=== PATIENT | female | born 1960 | race Caucasian/White ===

== ENCOUNTER 2016-05-31 15:16 | Emergency (ER) | payer MEDICAID ==
[~2016-05-31] VITALS: Ht 162.6 cm; Wt 70.0 kg
[~2016-05-31 15:16] MED LIST: ANTI2TAB PO; ASPI81 PO; BENT20TA PO; CART180C4 PO; CYCL-36 PO; FURO20 PO; HYDR-3129 PO; OMEP20TA39 PO; POTA-267 PO; PROM1SUP12 PR; REST30CA PO; VALI10TA PO; ZOFR4TAB3 PO
--- NOTE | 2016-05-31 15:43 | PD ---
HPI Chief Complaint: Medical Clearance Time Seen by Provider: 15:19 Travel History International Travel<30 days: No Contact w/Intl Traveler<30days: No Traveled to known affect area: No History of Present Illness HPI The patient was seen and examined in the presence of the nurse. At no point in time was I in the room without the nurse present. This patient has chronic pain and takes Lortab 10 3 times a day scheduled. She has chronic abdominal pain and frequently gets pain in her upper torso. Duration one day. Severity is moderate. No alleviating factors. She has history of single vessel bypass 6 years ago. Today the pain is in her left mid back as well as her usual lower abdominal pain. No vomiting or diarrhea. No fever. No presyncopal symptoms PFSH Past Medical History Hx Anticoagulant Therapy: Yes Arthritis: Yes Asthma: No Autoimmune Disease: No Blood Disorders: No Anxiety: Yes Depression: No Heart Rhythm Problems: No Cancer: No Cardiac Catheterization: Yes Cardiomyopathy: Yes Cardiovascular Problems: Yes High Cholesterol: No Chemotherapy: No Chest Pain: Yes Congestive Heart Failure: Yes COPD: No Cerebrovascular Accident: No Coronary Artery Disease: Yes Diabetes: No Diminished Hearing: No Endocrine: No Gastrointestinal Disorders: Yes (REFLUX) GERD: Yes Glaucoma: No Genitourinary: No Headaches: Yes Hepatitis: No Hiatal Hernia: No Hypertension: Yes Immune Disorder: No Inguinal Hernia: Yes Implanted Vascular Access Dvce: Yes Kidney Stones: Yes Musculoskeletal: Yes Neurologic: No Psychiatric: Yes Reproductive: No Respiratory: Yes Immunizations Current: No Migraines: Yes Myocardial Infarction: Yes (2000) Pneumonia: Yes Radiation Therapy: No Seizures: No Sickle Cell Disease: No Sleep Apnea: Yes Thyroid Disease: No Ulcer: No PNEUMOCCOCAL Vaccine (Year): 2 ?: Not Menopausal: Yes : 4 Para: 2 Miscarriage: 0 : 2 Dilation and Curettage (D&C): No Past Surgical History Abdominal Surgery: Yes (4 HERNIA REPAIRS ABOVE UMBILICUS, 5 HERNIA REPAIRS R GROIN) AICD: No Appendectomy: Yes Arteriovenous Shunt: Yes Body Medical Devices: Permanent Retainers in Mouth Cardiac Surgery: Yes (SINGLE VESSEL BYPASS 2000) Coronary Artery Bypass Graft: Yes Coronary Stent: Yes (X1) Ear Surgery: No Endocrine Surgery: No Eye Surgery: No Genitourinary Surgery: Yes (DILATION DONE ON 10/20/12; URETHRAL STENT) Gynecologic Surgery: Yes (COMPLETE HYSTERECTOMY 1993) Hysterectomy: Yes Neurologic Surgery: No Oral Surgery: Yes (T/A) Pacemaker: No Thoracic Surgery: No Tonsillectomy: Yes (T/A) Other Surgery: Yes (STOMACH STAPLED) Social History Alcohol Use: No Tobacco Use: No Substance Use: No Allergies-Medications (Allergen,Severity, Reaction): Coded Allergies: Celebrex (Verified Allergy, Severe, NAUSEA, 05/31/16) Codeine (Verified Allergy, Severe, 05/31/16) Fentanyl (Verified Allergy, Severe, 05/31/16) throat closing Hydroxyzine (Verified Allergy, Severe, UNKNOWN, 05/31/16) Macrobid (Unverified Allergy, Severe, "DEALTHLY ILL", 05/31/16) Meloxicam (Verified Allergy, Severe, 05/31/16) Mobic (Verified Allergy, Severe, 05/31/16) Paxil (Verified Allergy, Severe, MUSCLE SPASMS, ITCHING, 05/31/16) SPASMS IN LEGS Peanut Allergy (Verified Allergy, Severe, 05/31/16) Tapazole (Verified Allergy, Severe, EMESIS, 05/31/16) Toradol (Verified Allergy, Severe, ITCHING ALL OVER, 05/31/16) Ultram (Verified Allergy, Severe, ITCHING, 05/31/16) Vioxx (Verified Allergy, Severe, "MADE ME SICK", 05/31/16) Zoloft (Verified Allergy, Severe, EMESIS, 05/31/16) Zyprexa (Verified Allergy, Severe, EMESIS, 05/31/16) Celecoxib (Unverified Allergy, Unknown, 05/31/16) Ketorolac (Unverified Allergy, Unknown, 05/31/16) Methimazole (Unverified Allergy, Unknown, 05/31/16) Olanzapine (Unverified Allergy, Unknown, 05/31/16) PEANUTS (Verified Allergy, Unknown, tight throat, 05/31/16) Paroxetine (Unverified Allergy, Unknown, 05/31/16) Rofecoxib (Verified Allergy, Unknown, tachycardia,nausea, 05/31/16) Sertraline (Verified Allergy, Unknown, nausea,tachycardia, 05/31/16) Reported Meds & Prescriptions Reported Meds & Active Scripts Active Reported Aspirin DR (Aspirin) 81 Mg Tabdr 81 Mg PO DAILY Flexeril (Cyclobenzaprine HCl) 10 Mg Tab 10 Mg PO TID [place]ia Xt (Diltiazem ER 24 HR) 180 Mg Caper 180 Mg PO DAILY Valium (Diazepam) 10 Mg Tab 10 Mg PO BID Bentyl (Dicyclomine HCl) 10 Mg Cap 10 Mg PO TIDACHS Furosemide 20 Mg Tab 20 Mg PO DAILY [place] (Hydrocodone-Acetaminophen) 10-325 Mg Tab 1 Tab PO TID PRN Loperamide (Loperamide HCl) 2 Mg Cap 2 Mg PO Q4HR PRN One capsule after each loose stool. Not to exceed 8 capsules per day. Nexium (Esomeprazole DR) 40 Mg Capdr 40 Mg PO DAILY K-Tab (Potassium Chloride) 10 Meq Tab 10 Meq PO DAILY Phenergan (Promethazine HCl) 25 Mg Tab 25 Mg PO Q4HR PRN Restoril (Temazepam) 30 Mg Cap 30 Mg PO HS Toprol XL (Metoprolol Succinate) 25 Mg Tab 25 Mg PO DAILY Trazodone (Trazodone HCl) 100 Mg Tab 100 Mg PO HS PRN Zofran Odt (Ondansetron Odt) 4 Mg Tab 4 Mg SL Q6HR PRN Review of Systems General / Constitutional: No: Fever Eyes: No: Visual changes HENT: No: Headaches Cardiovascular: Positive: Chest Pain or Discomfort Respiratory: No: Shortness of Breath Gastrointestinal: Positive: Abdominal Pain Genitourinary: No: Dysuria Musculoskeletal: No: Pain Skin: No Rash Neurologic: No: Weakness Psychiatric: Positive: Anxiety, No: Depression Endocrine: No: Polydipsia Hematologic/Lymphatic: No: Easy Bruising Physical Exam Narrative GENERAL: Well-nourished, well-developed patient who is highly anxious . Frequently hyperventilating SKIN: Warm and dry. HEAD: Atraumatic. Normocephalic. EYES: Pupils equal and round. No scleral icterus. No injection or drainage. ENT: No nasal bleeding or discharge. Mucous membranes pink and moist. NECK: Trachea midline. No JVD. CARDIOVASCULAR: Regular rate and rhythm. No murmur appreciated. RESPIRATORY: No accessory muscle use. Clear to auscultation. Breath sounds equal bilaterally. GASTROINTESTINAL: Abdomen soft, non-tender, nondistended. Hepatic and splenic margins not palpable. MUSCULOSKELETAL: No obvious deformities. No clubbing. No cyanosis. No edema. NEUROLOGICAL: Awake and alert. No obvious cranial nerve deficits. Motor grossly within normal limits. Normal speech. PSYCHIATRIC: Anxious mood and affect; insight and judgment seems weak. Data Data Last Documented VS Vital Signs Date Time Temp Pulse Resp B/P Pulse Ox O2 Delivery O2 Flow Rate FiO2 05/31/16 17:00 74 20 129/69 98 Room Air Orders Electrocardiogram (05/31/16 15:33) Basic Metabolic Panel (Bmp) (05/31/16 15:33) Ckmb (Isoenzyme) Profile (05/31/16 15:33) Complete Blood Count With Diff (05/31/16 15:33) Prothrombin Time / Inr (Pt) (05/31/16 15:33) Act Partial Throm Time (Ptt) (05/31/16 15:33) Troponin I (05/31/16 15:33) Chest, Single Ap (05/31/16 15:33) Ecg Monitoring (05/31/16 15:33) Iv Access Insert/Monitor (05/31/16 15:33) Oximetry (05/31/16 15:33) Sodium Chloride 0.9% Flush (Ns Flush) (05/31/16 15:45) Ondansetron Inj (Zofran Inj) (05/31/16 15:45) Labs Laboratory Tests Test 05/31/16 15:45 White Blood Count 5.6 TH/MM3 Red Blood Count 4.66 MIL/MM3 Hemoglobin 14.2 GM/DL Hematocrit 41.1 % Mean Corpuscular Volume 88.2 FL Mean Corpuscular Hemoglobin 30.5 PG Mean Corpuscular Hemoglobin 34.5 % Concent Red Cell Distribution Width 13.2 % Platelet Count 233 TH/MM3 Mean Platelet Volume 9.6 FL Neutrophils (%) (Auto) 71.9 % Lymphocytes (%) (Auto) 20.8 % Monocytes (%) (Auto) 6.0 % Eosinophils (%) (Auto) 1.0 % Basophils (%) (Auto) 0.3 % Neutrophils # (Auto) 4.0 TH/MM3 Lymphocytes # (Auto) 1.2 TH/MM3 Monocytes # (Auto) 0.3 TH/MM3 Eosinophils # (Auto) 0.1 TH/MM3 Basophils # (Auto) 0.0 TH/MM3 CBC Comment DIFF FINAL Differential Comment Prothrombin Time 10.7 SEC Prothromb Time International 1.0 RATIO Ratio Activated Partial 24.1 SEC Thromboplast Time Sodium Level 142 MEQ/L Potassium Level 3.7 MEQ/L Chloride Level 108 MEQ/L Carbon Dioxide Level 25.9 MEQ/L Anion Gap 8 MEQ/L Blood Urea Nitrogen 13 MG/DL Creatinine 1.21 MG/DL Estimat Glomerular Filtration 46 ML/MIN Rate Random Glucose 132 MG/DL Calcium Level 8.9 MG/DL Total Creatine Kinase 49 U/L Troponin I LESS THAN 0.02 NG/ML MDM Medical Decision Making Medical Screen Exam Complete: Yes Emergency Medical Condition: Yes Medical Record Reviewed: Yes Differential Diagnosis ACS, costochondritis, narcotic seeking behavior, anxiety Narrative Course I have reviewed the patient's electronic medical record. Reviewed her last visit here from September 2015. There are red flags for drug-seeking behavior IV placed I reviewed the EKG which shows sinus rhythm but no ST elevation or ectopy I reviewed the chest x-ray looks normal Extended cardiac monitoring shows sinus rhythm without ectopy CBC is normal Metabolic profile is normal CK is normal Troponin is normal Coagulation studies are normal I gave her IV Zofran throughout her stay I checked on her multiple times and each time she appeared to be resting currently or sleeping Workup here is negative. I don't have any clinical suspicion of ACS Stable for outpatient follow-up She frequently badgered me for narcotic medication but I don't feel that is indicated here. Diagnosis Primary Impression: Chest pain Qualified Code: R07.9 - Chest pain, unspecified type Additional Impressions: Chronic generalized abdominal pain Back pain Qualified Code: M54.6 - Acute left-sided thoracic back pain Additional Instructions: The patient was advised to follow up with their physician and return if they worsen. Med/Other Pt SpecificInfo: Other Disposition: 01 DISCHARGE HOME Condition: Stable Sixto Betts MD May 31, 2016 15:43
[2016-05-31] MEDS ORDERED: ONDANSETRON HCL 4 MG/2 ML VIAL IV ONE (15:45)
[2016-05-31] MEDS ORDERED: SODIUM CHLORIDE 0.9% FLUSH 5 ML FLUSH IVF PRN (15:45)
--- NOTE | 2016-05-31 15:50 | RADRPT ---
EXAM DATE/TIME: 05/31/2016 15:29 [facility] COMPARISON: CHEST SINGLE AP, April 27, 2014, 8:48. INDICATIONS : Posterior chest pain MEDICAL HISTORY : Cardiovascular disease. SURGICAL HISTORY : CABG. ENCOUNTER: Initial ACUITY: 2 weeks PAIN SCORE: 4/10 LOCATION: Left chest FINDINGS: A single view of the chest demonstrates the lungs to be symmetrically aerated without evidence of mas s, infiltrate or effusion. The cardiomediastinal contours are unremarkable. Osseous structures are intact. Evidence prior cardiac surgery and surgical clips at the GE junction CONCLUSION: No acute disease. No significant change has occurred. César Mitchell MD on May 31, 2016 at 15:47 Board Certified Radiologist. This report was verified electronically.
[2016-05-31 16:12] LABS: BASOPHIL % 0.3 % (0.0-2.0); EOSINOPHIL # 0.1 TH/MM3 (0-0.4); HEMATOCRIT 41.1 % (35.0-46.0); HEMO FLAGS DIFF FINAL; LYMPH % 20.8 % (9.0-44.0); LYMPHOCYTE # 1.2 TH/MM3 (1.0-4.8); MEAN CELL VOLUME 88.2 FL (80.0-100.0); MEAN CORPUSCULAR HEMOGLOBIN 30.5 PG (27.0-34.0); MEAN CORPUSCULAR HGB CONC 34.5 % (32.0-36.0); NEUT % 71.9 % (16.0-70.0); PLATELET COUNT 233 TH/MM3 (150-450); RED BLOOD COUNT 4.66 MIL/MM3 (4.00-5.30); RED CELL DISTRIBUTION WIDTH 13.2 % (11.6-17.2); WHITE BLOOD COUNT 5.6 TH/MM3 (4.0-11.0)
[2016-05-31 16:26] LABS: APTT (PATIENT) 24.1 SEC (24.3-30.1); PROTHROMBIN TIME - PATIENT 10.7 SEC (9.8-11.6)
[2016-05-31] MEDS ORDERED: TRAZ100T4 PO (16:26)
[2016-05-31] MEDS ORDERED: ZOFR4TAB3 SL (16:26)
[2016-05-31] MEDS ORDERED: PROM25TA5 PO (16:30)
[2016-05-31] MEDS ORDERED: REST30CA PO (16:30)
[2016-05-31] MEDS ORDERED: LOPE2CAP PO (16:30)
[2016-05-31] MEDS ORDERED: TOPR25TA PO (16:30)
[2016-05-31] MEDS ORDERED: HYDR-3366 PO (16:30)
[2016-05-31] MEDS ORDERED: K-TA10TA PO (16:30)
[2016-05-31] MEDS ORDERED: NEXI40CA PO (16:30)
[2016-05-31] MEDS ORDERED: FURO20TA PO (16:30)
[2016-05-31] MEDS ORDERED: DICY10 PO (16:31)
[2016-05-31] MEDS ORDERED: DIAZ10 PO (16:33)
[2016-05-31] MEDS ORDERED: CYCL1TAB29 PO (16:33)
[2016-05-31] MEDS ORDERED: ASPI81TA5 PO (16:33)
[2016-05-31] MEDS ORDERED: CART180C PO (16:33)
[2016-05-31 16:47] LABS: ANION GAP 8 MEQ/L (5-15); BICARBONATE 25.9 MEQ/L (21.0-32.0); BLOOD UREA NITROGEN 13 MG/DL (7-18); CHLORIDE 108 MEQ/L (98-107); GLOMERULAR FILTRATION RATE 46 ML/MIN (>89); POTASSIUM 3.7 MEQ/L (3.5-5.1); SODIUM (NA) 142 MEQ/L (136-145)
[2016-05-31 16:49] LABS: CREATINE KINASE 49 U/L (26-192)
[2016-05-31 17:00] VITALS: BP 129/69; PULSE 74; RESP 20; O2SAT 98
--- NOTE | 2016-06-02 07:05 | EKG ---
Date Performed: 05/31/2016 Time Performed: 15:35:48 PTAGE: 56 years EKG: Sinus rhythm Consider anteroseptal ischemia PREVIOUS TRACING : 04/28/2014 02.14 DOCTOR: Amado Nava Interpretating Date/Time 06/02/2016 07:03:41
== END 2016-05-31 18:43 | disposition home or self-care (01) ==
LOC: NEPE 15:16
DX: R07.9 Chest pain, unspecified (principal); R10.84 Generalized abdominal pain; G89.29 Other chronic pain; M54.6 Pain in thoracic spine; I10 Essential (primary) hypertension; G47.30 Sleep apnea, unspecified; Z79.01 Long term (current) use of anticoagulants; Z87.39 Personal history of other diseases of the musculoskeletal system and connective tissue; Z86.59 Personal history of other mental and behavioral disorders; Z86.79 Personal history of other diseases of the circulatory system; Z87.19 Personal history of other diseases of the digestive system; Z87.442 Personal history of urinary calculi; Z87.09 Personal history of other diseases of the respiratory system; Z86.69 Personal history of other diseases of the nervous system and sense organs
CPT/HCPCS: 71010; 80048; 82550; 84484; 85025; 85610; 85730; 93005; 96374; 99284; J2405

== ENCOUNTER 2017-01-22 16:49 | Observation (INO) | payer MEDICAID ==
[~2017-01-22] VITALS: Ht 162.6 cm; Wt 68.0 kg
[~2017-01-22 16:49] MED LIST changes: -ANTI2TAB PO; -ASPI81 PO; +ASPI81TA5 PO; -BENT20TA PO; +CART180C PO; -CART180C4 PO; -CYCL-36 PO; +CYCL1TAB29 PO; +DIAZ10 PO; +DICY10 PO; -FURO20 PO; +FURO20TA PO; -HYDR-3129 PO; +HYDR-3366 PO; +K-TA10TA PO; +LOPE2CAP PO; +NEXI40CA PO; -OMEP20TA39 PO; -POTA-267 PO; -PROM1SUP12 PR; +PROM25TA5 PO; +TOPR25TA PO; +TRAZ100T4 PO; -VALI10TA PO; -ZOFR4TAB3 PO; +ZOFR4TAB3 SL
[2017-01-22 16:50] VITALS: BP 123/65; PULSE 58; RESP 16; TEMP 98; O2SAT 96
[2017-01-22] MEDS ORDERED: SODIUM CHLOR 0.9% 1000 ML INJ 1,000 ML IV SCH ×2 (17:11→17:45)
[2017-01-22] MEDS ORDERED: SODIUM CHLORIDE 0.9% FLUSH 10 ML FLUSH IV FLUSH PRN ×2 (17:15→23:00)
--- NOTE | 2017-01-22 17:32 | PD ---
HPI Chief Complaint: Abnormal Results Time Seen by Provider: 17:11 Travel History International Travel<30 days: No Contact w/Intl Traveler<30days: No Traveled to known affect area: No History of Present Illness HPI This is a 56-year-old female with history of heart disease, reported gallbladder disease, who presents today with complaints of right upper quadrant pain with associated nausea and decreased appetite. The patient reports that she was seen 1 month ago at [facility] in [place]. She states that that time they told her she had gallbladder disease and needed to have her gallbladder taken out emergently. She reports that the surgeons came in and said that they were going to take her gallbladder out and then shortly afterwards, she was told that she was being discharged. She is unsure why she was being discharged. She states that the ladder from her insurance company stated that there was no mention of gallbladder cancer or gallbladder polyp or gallbladder calcifications. She is here because she reports her insurance, [employer] called her and told her that she should come here rather than going back to [facility]. She denies any chills but does state that she had a low-grade temperature of 1015 days ago. There is no urinary symptoms. She states that she feels abdominal bloating. There are no other complaints time my examination. PFSH Past Medical History Hx Anticoagulant Therapy: Yes Arthritis: Yes Asthma: No Autoimmune Disease: No Blood Disorders: No Anxiety: Yes Depression: No Heart Rhythm Problems: No Cancer: No Cardiac Catheterization: Yes Cardiomyopathy: Yes Cardiovascular Problems: Yes High Cholesterol: No Chemotherapy: No Chest Pain: Yes Congestive Heart Failure: Yes COPD: No Cerebrovascular Accident: No Coronary Artery Disease: Yes Diabetes: No Diminished Hearing: No Endocrine: No Gastrointestinal Disorders: Yes (REFLUX) GERD: Yes Glaucoma: No Genitourinary: No Headaches: Yes Hepatitis: No Hiatal Hernia: No Hypertension: Yes Immune Disorder: No Inguinal Hernia: Yes Implanted Vascular Access Dvce: Yes Kidney Stones: Yes Musculoskeletal: Yes Neurologic: No Psychiatric: Yes Reproductive: No Respiratory: Yes Immunizations Current: No Migraines: Yes Myocardial Infarction: Yes (2000) Pneumonia: Yes Radiation Therapy: No Seizures: No Sickle Cell Disease: No Sleep Apnea: Yes Thyroid Disease: No Ulcer: No PNEUMOCCOCAL Vaccine (Year): 2 ?: Not Menopausal: Yes : 4 Para: 2 Miscarriage: 0 : 2 Dilation and Curettage (D&C): No Past Surgical History Abdominal Surgery: Yes (4 HERNIA REPAIRS ABOVE UMBILICUS, 5 HERNIA REPAIRS R GROIN) AICD: No Appendectomy: Yes Arteriovenous Shunt: Yes Body Medical Devices: Permanent Retainers in Mouth Cardiac Surgery: Yes (SINGLE VESSEL BYPASS 2000) Coronary Artery Bypass Graft: Yes Coronary Stent: Yes (X1) Ear Surgery: No Endocrine Surgery: No Eye Surgery: No Genitourinary Surgery: Yes (DILATION DONE ON 10/20/12; URETHRAL STENT) Gynecologic Surgery: Yes (COMPLETE HYSTERECTOMY 1993) Hysterectomy: Yes Neurologic Surgery: No Oral Surgery: Yes (T/A) Pacemaker: No Thoracic Surgery: No Tonsillectomy: Yes (T/A) Other Surgery: Yes (STOMACH STAPLED) Social History Alcohol Use: No Tobacco Use: No Substance Use: No Allergies-Medications (Allergen,Severity, Reaction): Coded Allergies: codeine (Unverified Allergy, Severe, 11/23/16) fentanyl (Unverified Allergy, Severe, 11/23/16) throat closing hydroxyzine (Unverified Allergy, Severe, UNKNOWN, 11/23/16) ipratropium (Unverified Allergy, Severe, 11/23/16) ketorolac (Unverified Allergy, Severe, ITCHING ALL OVER, 11/23/16) meloxicam (Unverified Allergy, Severe, 11/23/16) methimazole (Unverified Allergy, Severe, EMESIS, 11/23/16) nitrofurantoin (Unverified Allergy, Severe, "DEALTHLY ILL", 11/23/16) olanzapine (Unverified Allergy, Severe, EMESIS, 11/23/16) paroxetine (Unverified Allergy, Severe, MUSCLE SPASMS, ITCHING, 11/23/16) SPASMS IN LEGS sertraline (Unverified Allergy, Severe, EMESIS, 11/23/16) tramadol (Unverified Allergy, Severe, ITCHING, 11/23/16) celecoxib (Unverified Allergy, Unknown, 11/23/16) peanut (Unverified Allergy, Unknown, tight throat, 11/23/16) rofecoxib (Unverified Allergy, Unknown, tachycardia,nausea, 11/23/16) Reported Meds & Prescriptions Reported Meds & Active Scripts Active Reported Cardizem CD 24 HR (Diltiazem CD 24 HR) 180 Mg Caper 180 Mg PO DAILY Lyrica (Pregabalin) 75 Mg Cap 75 Mg PO BID Miralax Powder (Polyethylene Glycol 3350 Powder) 17 Gm Powd 17 Gm PO DAILY PRN Mix and dissolve one measuring cap-ful (17 grams) in water or juice. Phenergan (Promethazine HCl) 25 Mg Tablet 25 Mg PO TID Pantoprazole (Pantoprazole Sodium) 40 Mg Tab 40 Mg PO DAILY Carafate (Sucralfate) 1 Gram Tab 1 Gm PO QID On empty stomach One Daily (Multiple Vitamin) 1 Tab 1 Tab PO DAILY Proair Hfa 8.5 GM Inh (Albuterol Sulfate) 90 Mcg/Act Aer 2 Puff INH Q4-6H PRN 108 mcg/actuation Tizanidine (Tizanidine HCl) 2 Mg Cap 2 Mg PO TID Dicyclomine (Dicyclomine HCl) 20 Mg Tab 20 Mg PO QID Aspirin DR (Aspirin) 81 Mg Tabdr 81 Mg PO DAILY Valium (Diazepam) 10 Mg Tab 10 Mg PO BID Furosemide 20 Mg Tab 20 Mg PO DAILY [place] (Hydrocodone-Acetaminophen) 10-325 Mg Tab 1 Tab PO TID PRN K-Tab (Potassium Chloride) 10 Meq Tab 10 Meq PO DAILY Restoril (Temazepam) 30 Mg Cap 30 Mg PO HS Toprol XL (Metoprolol Succinate) 25 Mg Tab 25 Mg PO DAILY Zofran Odt (Ondansetron Odt) 4 Mg Tab 4 Mg SL Q6HR PRN Review of Systems Except as stated in HPI: all other systems reviewed are Neg General / Constitutional: Positive: Fever (5 days ago 101.), No: Chills HENT: No: Headaches, Neck Pain Cardiovascular: No: Chest Pain or Discomfort, Irregular Rhythm Respiratory: No: Cough, Shortness of Breath Gastrointestinal: Positive: Nausea, Abdominal Pain (right upper quadrant), Constipation, No: Vomiting Genitourinary: No: Frequency, Dysuria Musculoskeletal: No: Weakness, Pain Neurologic: No: Weakness, Dizziness, Headache Physical Exam Narrative GENERAL: Well-developed well-nourished female in no acute respiratory distress. SKIN: Focused skin assessment warm/dry. HEAD: Atraumatic. Normocephalic. EYES: No scleral icterus. No injection or drainage. ENT: No nasal bleeding or discharge. Mucous membranes pink and moist. NECK: Trachea midline. Pulse. CARDIOVASCULAR: Regular rate and rhythm. No murmur appreciated. RESPIRATORY: No accessory muscle use. Clear to auscultation. Breath sounds equal bilaterally. GASTROINTESTINAL: Abdomen soft, distended. No rebound or guarding. She has subjective tenderness in her right upper quadrant with Tanner's sign. MUSCULOSKELETAL: No obvious deformities. No clubbing. No cyanosis. No edema. NEUROLOGICAL: Awake and alert. No obvious cranial nerve deficits. Motor grossly within normal limits. Normal speech. PSYCHIATRIC: Appropriate mood and affect; insight and judgment normal. Data Data Last Documented VS Vital Signs Date Time Temp Pulse Resp B/P (MAP) Pulse Ox O2 Delivery O2 Flow Rate FiO2 01/22/17 17:40 Room Air 01/22/17 16:50 98.0 58 16 123/65 (84) 96 Orders Orders Complete Blood Count With Diff (01/22/17 17:11) Comprehensive Metabolic Panel (01/22/17 17:11) Lipase (01/22/17 17:11) Urinalysis - C+S If Indicated (01/22/17 17:11) Iv Access Insert/Monitor (01/22/17 17:11) Ecg Monitoring (01/22/17 17:11) Oximetry (01/22/17 17:11) Sodium Chlor 0.9% 1000 Ml Inj (Ns 1000 M (01/22/17 17:11) Sodium Chloride 0.9% Flush (Ns Flush) (01/22/17 17:15) Ed Urine Pregnancytest Poc (01/22/17 17:11) Us Abdomen Gallbladder (01/22/17 17:24) Morphine Inj (Morphine Inj) (01/22/17 17:45) Oral Contrast - Adult (01/22/17 18:22) Ct Abd/Pel W/O Iv Contrast (01/22/17 18:31) Ondansetron Inj (Zofran Inj) (01/22/17 18:45) Diatrizoate Liq ( Gastroview Liq) (01/22/17 18:37) Labs Laboratory Tests Test 01/22/17 17:45 White Blood Count 4.8 TH/MM3 Red Blood Count 4.38 MIL/MM3 Hemoglobin 13.3 GM/DL Hematocrit 39.2 % Mean Corpuscular Volume 89.5 FL Mean Corpuscular Hemoglobin 30.4 PG Mean Corpuscular Hemoglobin Concent 34.0 % Red Cell Distribution Width 13.6 % Platelet Count 219 TH/MM3 Mean Platelet Volume 9.3 FL Neutrophils (%) (Auto) 65.8 % Lymphocytes (%) (Auto) 25.3 % Monocytes (%) (Auto) 7.0 % Eosinophils (%) (Auto) 1.6 % Basophils (%) (Auto) 0.3 % Neutrophils # (Auto) 3.1 TH/MM3 Lymphocytes # (Auto) 1.2 TH/MM3 Monocytes # (Auto) 0.3 TH/MM3 Eosinophils # (Auto) 0.1 TH/MM3 Basophils # (Auto) 0.0 TH/MM3 CBC Comment DIFF FINAL Differential Comment Blood Urea Nitrogen 24 MG/DL Creatinine 1.78 MG/DL Random Glucose 94 MG/DL Total Protein 6.5 GM/DL Albumin 3.6 GM/DL Calcium Level 8.5 MG/DL Alkaline Phosphatase 58 U/L Aspartate Amino Transf (AST/SGOT) 15 U/L Alanine Aminotransferase (ALT/SGPT) 28 U/L Total Bilirubin 0.2 MG/DL Sodium Level 142 MEQ/L Potassium Level 4.4 MEQ/L Chloride Level 107 MEQ/L Carbon Dioxide Level 28.0 MEQ/L Anion Gap 7 MEQ/L Estimat Glomerular Filtration Rate 29 ML/MIN Lipase 157 U/L MDM Medical Decision Making Medical Screen Exam Complete: Yes Emergency Medical Condition: Yes Differential Diagnosis Acute cholecystitis versus bowel obstruction versus constipation versus liver disease Narrative Course 56-year-old female presents with right upper quadrant pain. Patient also reports abdominal distention. She states she was seen a month ago at [facility] and at that time they told her she had acute cholecystitis. She states that they were preparing her to have surgery and then came in and said that she is being discharged. We're trying to obtain the records from [facility]. She is ultrasound was performed and shows no evidence of acute cholecystitis. A CT scan of the and pelvis with oral contrast only is ordered to rule out acute abdominal pathology. The patient will be signed out to Dr. Mick Badillo. She will do fairly need to be admitted. Her creatinine has increased from 1.2-1.7. This is likely secondary to her not being able to eat or drink well. Diagnosis Primary Impression: Abdominal pain Additional Impressions: Abdominal swelling [id number] kidney injury Coronary artery disease Andre Venegas MD Jan 22, 2017 17:32
[2017-01-22] MEDS ORDERED: PROCHLORPERAZINE INJ 10 MG/2 ML VIAL IV PUSH ONE (17:45)
[2017-01-22] MEDS ORDERED: MORPHINE SULFATE 4 MG/ML INJ IV PUSH ONE ×2 (17:45→21:00)
[2017-01-22] MEDS ORDERED: DICY20TA10 PO (17:57)
[2017-01-22] MEDS ORDERED: TIZA2CAP3 PO (17:57)
[2017-01-22 17:58] LABS: AUTOMATED NEUTROPHIL # 3.1 TH/MM3 (1.8-7.7); BASOPHIL % 0.3 % (0.0-2.0); EOSINOPHIL # 0.1 TH/MM3 (0-0.4); EOSINOPHIL % 1.6 % (0.0-4.0); HEMATOCRIT 39.2 % (35.0-46.0); HEMO FLAGS DIFF FINAL; LYMPH % 25.3 % (9.0-44.0); LYMPHOCYTE # 1.2 TH/MM3 (1.0-4.8); MEAN CELL VOLUME 89.5 FL (80.0-100.0); MEAN CORPUSCULAR HEMOGLOBIN 30.4 PG (27.0-34.0); NEUT % 65.8 % (16.0-70.0); PLATELET COUNT 219 TH/MM3 (150-450); RED BLOOD COUNT 4.38 MIL/MM3 (4.00-5.30); RED CELL DISTRIBUTION WIDTH 13.6 % (11.6-17.2); WHITE BLOOD COUNT 4.8 TH/MM3 (4.0-11.0)
[2017-01-22] MEDS ORDERED: MIRA3350 PO (18:01)
[2017-01-22] MEDS ORDERED: CARD180C5 PO (18:01)
[2017-01-22] MEDS ORDERED: ALBUAER3 INH (18:01)
[2017-01-22] MEDS ORDERED: MULT-207 PO (18:01)
[2017-01-22] MEDS ORDERED: PANT40TA3 PO (18:01)
[2017-01-22] MEDS ORDERED: PROM25TA10 PO (18:01)
[2017-01-22] MEDS ORDERED: CARA1TAB6 PO (18:01)
[2017-01-22] MEDS ORDERED: LYRI75CA PO (18:01)
[2017-01-22 18:17] LABS: ANION GAP 7 MEQ/L (5-15); AST (GOT) 15 U/L (15-37); BLOOD UREA NITROGEN 24 MG/DL (7-18); CHLORIDE 107 MEQ/L (98-107); GLOMERULAR FILTRATION RATE 29 ML/MIN (>89); POTASSIUM 4.4 MEQ/L (3.5-5.1); SODIUM (NA) 142 MEQ/L (136-145)
--- NOTE | 2017-01-22 18:19 | RADRPT ---
EXAM DATE/TIME: 01/22/2017 17:47 [facility] COMPARISON: No previous studies available for comparison. INDICATIONS : Right upper quadrant pain. MEDICAL HISTORY : Myocardial infarction. Hypertension. Gastroesophageal reflux disease. Glasses. Dizziness. Headache. N umbness. Congestive heart failure. Coronary artery disease. Cardiomyopathy. Sleep apnea. Anticoagulan t therapy. Kidney stones. Inguinal hernia. Arthritis. SURGICAL HISTORY : Tonsillectomy. CABG. Appendectomy. Adenoidectomy. Single vessel bypass. Arteriovenous shunt. Hysterec mary jo. ENCOUNTER: Initial ACUITY: 4-6 months PAIN SCORE: 10/10 LOCATION: Right upper quadrant MEASUREMENTS: LIVER: 15.8 cm length COMMON DUCT: 8 mm RIGHT KIDNEY: 9.4 x 3.9 x 4.0 cm FINDINGS: LIVER: Normal echotexture without focal lesion or ductal dilatation. COMMON DUCT: Mildly dilated without evidence of focal intraluminal filling defect. GALLBLADDER: Contains no stones, demonstrates no wall thickening or pericholecystic fluid. PANCREAS: The visualized portions are within normal limits. RIGHT KIDNEY: Small hyperechoic structures suggesting nephrolithiasis. There is no evidence of hydronephrosis. Prom inent extrarenal pelvis is noted. CONCLUSION: 1. Mildly distended common bile duct. 2. No evidence of intrahepatic biliary duct dilatation, cholelithiasis or acute inflammatory changes. 3. Small bright echoes in the kidney suggesting nephrolithiasis. 4. Right extrarenal pelvis without significant hydronephrosis. Obey Canales MD on January 22, 2017 at 18:16 Board Certified Radiologist. This report was verified electronically.
[2017-01-22 18:23] LABS: ALKALINE PHOSPHATASE 58 U/L (45-117); ALT (GPT) 28 U/L (10-53); TOTAL BILIRUBIN ADULT 0.2 MG/DL (0.2-1.0)
[2017-01-22] MEDS ORDERED: DIATRIZOATE MEGLUM/DIATRIZOATE SOD 9 ML CUP ONE (18:37)
[2017-01-22] MEDS ORDERED: ONDANSETRON HCL 4 MG/2 ML VIAL IV PUSH ONE ×2 (18:45→21:00)
[2017-01-22 19:11] LABS: BLOOD, URINE NEG (NEG); GLUCOSE,URINE NEG (NEG); KETONE, URINE NEG (NEG); NITRITE,URINE NEG (NEG); PH, URINE 6.5 (5.0-8.5); SQUAMOUS EPITHELIAL CELL URINE <1 /hpf (0-5); URINE COLOR LIGHT-YELLOW (YELLW/STRAW)
[2017-01-22 19:14] LABS: COMMENT (UR) CULT NOT INDICATED; CULTURE IF INDICATED CULT NOT INDICATED
[2017-01-22 19:42] VITALS: PULSE 55; RESP 20; O2SAT 96
--- NOTE | 2017-01-22 20:16 | PD ---
Physical Exam Narrative Patient was seen by ED physician and signed out to me. Data Data Last Documented VS Vital Signs Date Time Temp Pulse Resp B/P (MAP) Pulse Ox O2 Delivery O2 Flow Rate FiO2 01/22/17 21:08 65 110/74 (86) 99 Room Air 01/22/17 19:42 20 01/22/17 16:50 98.0 Orders Orders Complete Blood Count With Diff (01/22/17 17:11) Comprehensive Metabolic Panel (01/22/17 17:11) Lipase (01/22/17 17:11) Urinalysis - C+S If Indicated (01/22/17 17:11) Iv Access Insert/Monitor (01/22/17 17:11) Ecg Monitoring (01/22/17 17:11) Oximetry (01/22/17 17:11) Sodium Chlor 0.9% 1000 Ml Inj (Ns 1000 M (01/22/17 17:11) Sodium Chloride 0.9% Flush (Ns Flush) (01/22/17 17:15) Ed Urine Pregnancytest Poc (01/22/17 17:11) Us Abdomen Gallbladder (01/22/17 17:24) Morphine Inj (Morphine Inj) (01/22/17 17:45) Oral Contrast - Adult (01/22/17 18:22) Ct Abd/Pel W/O Iv Contrast (01/22/17 18:31) Ondansetron Inj (Zofran Inj) (01/22/17 18:45) Diatrizoate Liq ( Gastroview Liq) (01/22/17 18:37) Morphine Inj (Morphine Inj) (01/22/17 21:00) Ondansetron Inj (Zofran Inj) (01/22/17 21:00) Labs Laboratory Tests Test 01/22/17 17:45 01/22/17 18:50 White Blood Count 4.8 TH/MM3 Red Blood Count 4.38 MIL/MM3 Hemoglobin 13.3 GM/DL Hematocrit 39.2 % Mean Corpuscular Volume 89.5 FL Mean Corpuscular Hemoglobin 30.4 PG Mean Corpuscular Hemoglobin Concent 34.0 % Red Cell Distribution Width 13.6 % Platelet Count 219 TH/MM3 Mean Platelet Volume 9.3 FL Neutrophils (%) (Auto) 65.8 % Lymphocytes (%) (Auto) 25.3 % Monocytes (%) (Auto) 7.0 % Eosinophils (%) (Auto) 1.6 % Basophils (%) (Auto) 0.3 % Neutrophils # (Auto) 3.1 TH/MM3 Lymphocytes # (Auto) 1.2 TH/MM3 Monocytes # (Auto) 0.3 TH/MM3 Eosinophils # (Auto) 0.1 TH/MM3 Basophils # (Auto) 0.0 TH/MM3 CBC Comment DIFF FINAL Differential Comment Blood Urea Nitrogen 24 MG/DL Creatinine 1.78 MG/DL Random Glucose 94 MG/DL Total Protein 6.5 GM/DL Albumin 3.6 GM/DL Calcium Level 8.5 MG/DL Alkaline Phosphatase 58 U/L Aspartate Amino Transf (AST/SGOT) 15 U/L Alanine Aminotransferase (ALT/SGPT) 28 U/L Total Bilirubin 0.2 MG/DL Sodium Level 142 MEQ/L Potassium Level 4.4 MEQ/L Chloride Level 107 MEQ/L Carbon Dioxide Level 28.0 MEQ/L Anion Gap 7 MEQ/L Estimat Glomerular Filtration Rate 29 ML/MIN Lipase 157 U/L Urine Color LIGHT-YELLOW Urine Turbidity CLEAR Urine pH 6.5 Urine Specific [place] 1.009 Urine Protein NEG mg/dL Urine Glucose (UA) NEG mg/dL Urine Ketones NEG mg/dL Urine Occult Blood NEG Urine Nitrite NEG Urine Bilirubin NEG Urine Urobilinogen LESS THAN 2.0 MG/DL Urine Leukocyte Esterase NEG Urine RBC 1 /hpf Urine Squamous Epithelial Cells <1 /hpf Microscopic Urinalysis Comment CULT NOT INDICATED MDM Supervised Visit with RACH: No Interpretation(s) 2014 p.m. Gallbladder ultrasound shows mildly distended common bile duct, right nephrolithiasis. CBC within normal limit. CMP within normal limit. BUN 24. Creatinine 1.78. GFR 29. UA is negative. 22:12 PM. distended urinary bladder, possible urinary retention. Diagnosis Primary Impression: Abdominal pain Qualified Codes: R10.11 - Right upper quadrant pain Additional Impressions: Coronary artery disease Qualified Codes: I25.10 - Atherosclerotic heart disease of [place] coronary artery without angina pectoris [id number] kidney injury Qualified Codes: N17.9 - Acute kidney failure, unspecified; N18.4 - Chronic kidney disease, stage 4 (severe) Abdominal swelling Admitting Information Admitting Physician Requests: Admit Mick Badillo MD Jan 22, 2017 20:16
[2017-01-22 21:08] VITALS: BP 110/74; PULSE 65; O2SAT 99
--- NOTE | 2017-01-22 21:56 | RADRPT ---
EXAM DATE/TIME: 01/22/2017 21:13 [place] COMPARISON: No previous studies available for comparison. INDICATIONS : Right upper abdomen pain. ORAL CONTRAST: Prescribed oral contrast ingested. RADIATION DOSE: 8.48 CTDIvol (mGy) MEDICAL HISTORY : Cardiovascular disease. Congestive heart failure. SURGICAL HISTORY : Appendectomy. Hysterectomy.Gastric bypass. ENCOUNTER: Initial ACUITY: 1 day PAIN SCALE: 5/10 LOCATION: Right upper quadrant TECHNIQUE: Volumetric scanning of the abdomen and pelvis was performed. Using automated exposure control and ad justment of the mA and/or kV according to patient size, radiation dose was kept as low as reasonably achievable to obtain optimal diagnostic quality images. DICOM format image data is available electro nically for review and comparison. FINDINGS: LOWER LUNGS: The visualized lower lungs are clear. LIVER: Homogeneous density without lesion. There is no dilation of the biliary tree. No calcified gallston es. SPLEEN: Normal size without lesion. PANCREAS: Within normal limits. KIDNEYS: Normal in size and shape. There is no mass, stone, or hydronephrosis. ADRENAL GLANDS: Within normal limits. VASCULAR: There is no aortic aneurysm. BOWEL/MESENTERY: Postsurgical changes are noted at the gastroesophageal junction. The stomach, small bowel, and colon demonstrate no acute abnormality. There is no free intraperitoneal air or fluid. ABDOMINAL WALL: Within normal limits. RETROPERITONEUM: There is no lymphadenopathy. BLADDER: Urinary bladder is markedly distended. There is no evidence of wall thickening or intraluminal fillin g defects REPRODUCTIVE: Within normal limits. INGUINAL: There is no lymphadenopathy or hernia. MUSCULOSKELETAL: Within normal limits for patient age. CONCLUSION: 1. Markedly distended urinary bladder characteristic of urinary retention. 2. Post surgical changes gastroesophageal junction. 3. No other significant findings. Obey Canales MD on January 22, 2017 at 21:50 Board Certified Radiologist. This report was verified electronically.
[2017-01-22] MEDS ORDERED: SENNOSIDES 8.6 MG TAB PO PRN (23:00)
[2017-01-22] MEDS ORDERED: MAGNESIUM HYDROXIDE SUSP 30 ML CUP PO PRN (23:00)
[2017-01-22] MEDS ORDERED: LACTULOSE SYRUP 20 GM/30 ML CUP PO PRN (23:00)
[2017-01-22] MEDS ORDERED: ACETAMINOPHEN 325 MG TAB PO PRN (23:00)
[2017-01-22] MEDS ORDERED: BISACODYL 10 MG SUPP RECTAL PRN (23:00)
[2017-01-22] MEDS ORDERED: MORPHINE SULFATE 4 MG/ML INJ IV PUSH PRN (23:00)
--- NOTE | 2017-01-22 23:03 | HHI.HP ---
[facility] Santhosh Yuan DO Admission Diagnosis intractable abdominal pain Diagnoses: (1) Intractable abdominal pain Diagnosis: Principal (2) Dilated cbd, acquired Diagnosis: Principal (3) Renal insufficiency Diagnosis: Principal (4) Anxiety Diagnosis: Principal Travel History International Travel<30 Days: No Contact w/Intl Traveler <30 Da: No Traveled to Known Affected Are: No History of Present Illness This is a 56-year-old female with a PMH of Anxiety, HTN, Hyperlipidemia, GERD and CAD who presented to the ER with complaints of severe RUQ pain w/ associated nausea and vomiting. States symptoms have been ongoing for 4 months , previously seen at [facility] w/ negative CT and RUQ US per her report, states she was seen by GI s/p EGD/Colonoscopy w/ normal findings and was referred to [facility] for outpatient cholecystectomy, however states surgeon's office keeps rescheduling her appointments and her insurance company [employer] told her to come here "to take my gallbladder out". Denies fever, chills or diarrhea. On arrival, BP 123/65, HR 58, O2 sat 96% on RA, Afebrile. CBC normal. Chemistry unremarkable except for creatinine 1.78, previously 1.21 on 05/31/16. UA negative. CT Abd/Pelvis w/ markedly distended urinary bladder no other findings. Gallbladder US w/ mildly distended common bile duct, no evidence of intrahepatic biliary duct dilatation, cholelithiasis or acute inflammatory changes. Patient was to be discharged home, however is having persistent pain despite several doses of IV Morphine. Review of Systems Except as stated in HPI: all other systems reviewed are Neg ROS: 14 point review of systems otherwise negative. Past Family Social History Past Medical History PMH: Anxiety, HTN, Hyperlipidemia, GERD and CAD Past Surgical History PAST SURGICAL HISTORY: Hernia Repair, Appendectomy, CABG, Cardiac Stent, Hysterectomy, Stomach [place], Tonsillectomy Allergies: Coded Allergies: codeine (Unverified Allergy, Severe, 11/23/16) fentanyl (Unverified Allergy, Severe, 11/23/16) throat closing hydroxyzine (Unverified Allergy, Severe, UNKNOWN, 11/23/16) ipratropium (Unverified Allergy, Severe, 11/23/16) ketorolac (Unverified Allergy, Severe, ITCHING ALL OVER, 11/23/16) meloxicam (Unverified Allergy, Severe, 11/23/16) methimazole (Unverified Allergy, Severe, EMESIS, 11/23/16) nitrofurantoin (Unverified Allergy, Severe, "DEALTHLY ILL", 11/23/16) olanzapine (Unverified Allergy, Severe, EMESIS, 11/23/16) paroxetine (Unverified Allergy, Severe, MUSCLE SPASMS, ITCHING, 11/23/16) SPASMS IN LEGS sertraline (Unverified Allergy, Severe, EMESIS, 11/23/16) tramadol (Unverified Allergy, Severe, ITCHING, 11/23/16) celecoxib (Unverified Allergy, Unknown, 11/23/16) peanut (Unverified Allergy, Unknown, tight throat, 11/23/16) rofecoxib (Unverified Allergy, Unknown, tachycardia,nausea, 11/23/16) Family History PAST FAMILY HISTORY: Reviewed. No h/o DM or CAD Social History PAST SOCIAL HISTORY: Negative for alcohol, tobacco or drugs. Physical Exam Vital Signs Vital Signs Date Time Temp Pulse Resp B/P (MAP) Pulse Ox O2 Delivery O2 Flow Rate FiO2 01/22/17 21:08 65 110/74 (86) 99 Room Air 01/22/17 19:44 98 Room Air 01/22/17 19:42 55 20 96 Room Air 01/22/17 17:40 Room Air 01/22/17 16:50 98.0 58 16 123/65 (84) 96 Physical Exam PE: GENERAL: Middle-aged white female in significant distress secondary to anxiety, very tearful. HEENT: PERRLA, EOMI. No scleral icterus or conjunctival pallor. No lid lag or facial droop. CARDIOVASCULAR: Regular rate and rhythm. No obvious murmurs to auscultation. No chest tenderness to palpation. RESPIRATORY: No obvious rhonchi or wheezing. Clear to auscultation. Breath sounds equal bilaterally. GASTROINTESTINAL: Abdomen soft, RUQ tenderness to palpation, nondistended. BS normal. MUSCULOSKELETAL: Extremities without clubbing, cyanosis, or edema. No obvious deformities. NEUROLOGICAL: Awake, alert and oriented x4. No focal neurologic deficits. Moving both upper and lower extremities spontaneously. Laboratory Laboratory Tests Test 01/22/17 17:45 01/22/17 18:50 White Blood Count 4.8 Red Blood Count 4.38 Hemoglobin 13.3 Hematocrit 39.2 Mean Corpuscular Volume 89.5 Mean Corpuscular Hemoglobin 30.4 Mean Corpuscular Hemoglobin Concent 34.0 Red Cell Distribution Width 13.6 Platelet Count 219 Mean Platelet Volume 9.3 Neutrophils (%) (Auto) 65.8 Lymphocytes (%) (Auto) 25.3 Monocytes (%) (Auto) 7.0 Eosinophils (%) (Auto) 1.6 Basophils (%) (Auto) 0.3 Neutrophils # (Auto) 3.1 Lymphocytes # (Auto) 1.2 Monocytes # (Auto) 0.3 Eosinophils # (Auto) 0.1 Basophils # (Auto) 0.0 CBC Comment DIFF FINAL Differential Comment Blood Urea Nitrogen 24 Creatinine 1.78 Random Glucose 94 Total Protein 6.5 Albumin 3.6 Calcium Level 8.5 Alkaline Phosphatase 58 Aspartate Amino Transf (AST/SGOT) 15 Alanine Aminotransferase (ALT/SGPT) 28 Total Bilirubin 0.2 Sodium Level 142 Potassium Level 4.4 Chloride Level 107 Carbon Dioxide Level 28.0 Anion Gap 7 Estimat Glomerular Filtration Rate 29 Lipase 157 Urine Color LIGHT-YELLOW Urine Turbidity CLEAR Urine pH 6.5 Urine Specific [place] 1.009 Urine Protein NEG Urine Glucose (UA) NEG Urine Ketones NEG Urine Occult Blood NEG Urine Nitrite NEG Urine Bilirubin NEG Urine Urobilinogen LESS THAN 2.0 Urine Leukocyte Esterase NEG Urine RBC 1 Urine Squamous Epithelial Cells <1 Microscopic Urinalysis Comment CULT NOT INDICATED Result Diagram: 01/22/17174401/22/171744 Caprini VTE Risk Assessment Caprini VTE Risk Assessment: No/Low Risk (score <= 1) Caprini Risk Assessment Model Point Value = 1 Point Value = 2 Point Value = 3 Point Value = 5 Age 41-60 Minor surgery BMI > 25 kg/m2 Swollen legs Varicose veins or History of unexplained or recurrent spontaneous Oral contraceptives or hormone replacement Sepsis (< 1 month) Serious lung disease, including pneumonia (< 1 month) Abnormal pulmonary function Acute myocardial infarction Congestive heart failure (< 1 month) History of inflammatory bowel disease Medical patient at bed rest Age 61-74 Arthroscopic surgery Major open surgery (> 45 min) Laparoscopic surgery (> 45 min) Malignancy Confined to bed (> 72 hours) Immobilizing plaster cast Central venous access Age >= 75 History of VTE Family history of VTE Factor V Leiden Prothrombin [id number] Lupus anticoagulant Anticardiolipin antibodies Elevated serum homocysteine Heparin-induced thrombocytopenia Other congenital or acquired thrombophilia Stroke (< 1 month) Elective arthroplasty Hip, pelvis, or leg fracture Acute spinal cord injury (< 1 month) Prophylaxis Regimen Total Risk Factor Score Risk Level Prophylaxis Regimen 0-1 Low Early ambulation 2 Moderate Order ONE of the following: *Sequential Compression Device (SCD) *Heparin 5000 units SQ BID 3-4 Higher Order ONE of the following medications: *Heparin 5000 units SQ TID *Enoxaparin/Lovenox 40 mg SQ daily (WT < 150 kg, CrCl > 30 mL/min) *Enoxaparin/Lovenox 30 mg SQ daily (WT < 150 kg, CrCl > 10-29 mL/min) *Enoxaparin/Lovenox 30 mg SQ BID (WT < 150 kg, CrCl > 30 mL/min) AND/OR *Sequential Compression Device (SCD) 5 or more Highest Order ONE of the following medications: *Heparin 5000 units SQ TID (Preferred with Epidurals) *Enoxaparin/Lovenox 40 mg SQ daily (WT < 150 kg, CrCl > 30 mL/min) *Enoxaparin/Lovenox 30 mg SQ daily (WT < 150 kg, CrCl > 10-29 mL/min) *Enoxaparin/Lovenox 30 mg SQ BID (WT < 150 kg, CrCl > 30 mL/min) AND *Sequential Compression Device (SCD) Assessment and Plan Problem List: (1) Intractable abdominal pain ICD Code: R10.9 - Unspecified abdominal pain (2) Dilated cbd, acquired ICD Code: K83.8 - Other specified diseases of biliary tract (3) Renal insufficiency ICD Code: N28.9 - Disorder of kidney and ureter, unspecified (4) Anxiety ICD Code: F41.9 - Anxiety Status: Acute Assessment and Plan A/P: 1. Intractable Abd Pain: c/o RUQ pain x4 months, worse after eating, associated nausea/vomiting. S/p multiple doses of Morphine IV in ER w/ minimal relief. Continue analgesics/antiemetics as needed. CT Abd/Pelvis w/ urinary retention, no other acute findings, images reviewed by me. 2. CBD Dilatation: Gallbladder US w/ mild CBD dilatation, no intrahepatic biliary ductal dilatation, no cholelithiasis, no inflammation/infection noted, images reviewed by me. Previous eval at [facility] w/ negative work up, s/p EGD/ Colonoscopy, referred to [facility] as outpatient, however pt demanding "someone take out my gallbladder". No indication for emergent intervention. Will consult GI for further eval, likely [facility] as outpatient for elective cholecystectomy. Continue w/ analgesics as above. 3. Renal Insufficiency: Acute on Chronic. Creatinine 1.78, previously 1.21 on 05/31/16. IVF for hydration, repeat labs in a.m. 4. Anxiety: extremely anxious/tearful on exam, resume home medications, Ativan prn if needed. 5. DVT Prophylaxis: SCD/Teds. 6. Social work for d/c planning as needed. 7. Case discussed w/ ER physician at length. Reny Wong MD Jan 22, 2017 23:03
[2017-01-22] MEDS: SODIUM CHLOR 0.9% 1000 ML INJ 1,000 ML IV SCH (23:14)
[2017-01-22] MEDS ORDERED: ALBUTEROL SULFATE 90 MCG/ACT HFA 8 GM INHALER INH PRN (23:45)
[2017-01-22] MEDS ORDERED: LORazepam 2 MG/ML VIAL IV PUSH PRN (23:45)
[2017-01-22] MEDS: TEMAZEPAM 15 MG CAP PO SCH (23:54)
[2017-01-23 00:15] VITALS: BP 117/69; PULSE 78; RESP 18; TEMP 98.8; O2SAT 98
[2017-01-23] MEDS: ONDANSETRON HCL 4 MG/2 ML VIAL IVP PRN (01:40)
[2017-01-23 04:23] VITALS: BP 103/55; PULSE 57; RESP 18; TEMP 98.1; O2SAT 97
[2017-01-23 08:21] VITALS: BP 113/58; PULSE 58; RESP 20; TEMP 96; O2SAT 60; O2SAT 96
[2017-01-23 08:30] LABS: AUTOMATED NEUTROPHIL # 1.5 TH/MM3 (1.8-7.7); BASOPHIL % 0.3 % (0.0-2.0); EOSINOPHIL # 0.1 TH/MM3 (0-0.4); EOSINOPHIL % 3.4 % (0.0-4.0); HEMATOCRIT 36.9 % (35.0-46.0); HEMO FLAGS DIFF FINAL; LYMPH % 46.9 % (9.0-44.0); LYMPHOCYTE # 1.7 TH/MM3 (1.0-4.8); MEAN CELL VOLUME 89.3 FL (80.0-100.0); MEAN CORPUSCULAR HEMOGLOBIN 30.4 PG (27.0-34.0); MONO % 8.4 % (0.0-8.0); PLATELET COUNT 177 TH/MM3 (150-450); RED BLOOD COUNT 4.13 MIL/MM3 (4.00-5.30); RED CELL DISTRIBUTION WIDTH 13.5 % (11.6-17.2); WHITE BLOOD COUNT 3.6 TH/MM3 (4.0-11.0)
--- NOTE | 2017-01-23 08:33 | HHI.PR ---
Subjective Remarks Follow-up for abdominal pain. The patient is extremely anxious. She is fixated on getting her gallbladder out. She is absolutely sure that this is what is causing her right upper quadrant pain and cannot be dissuaded otherwise. Apparently she's been having constant right upper quadrant pain for 4 months. She states this was first evaluated about a month ago at [facility] in [facility]. She was evaluated by GI, Dr. Moran, and had a reportedly unremarkable EGD and colonoscopy. She also reports she had a HIDA scan at that time. She states that she was told by multiple doctors there that she needed to have her gallbladder out, but she also states that she had multiple negative tests. She states that her mother and her sisters have had negative tests for their gallbladders but they still had them removed. She states she was evaluated by surgery there, Dr. Cantu, who she did see in the hospital and in the outpatient setting. She states that he told her he would take out her gallbladder, but she states there was problems with her insurance and it has not been scheduled yet. She states she called her insurance and they told her to come to the hospital at [place]. She has been taking [place] at home which does not relieve the pain, states morphine helps. She reports a normal BM today. She states she never has any vomiting, just gagging. She's been tolerating oral intake. She states she felt feverish last night. She reports she's been urinating normally. Objective Vitals Vital Signs Date Time Temp Pulse Resp B/P (MAP) Pulse Ox O2 Delivery O2 Flow Rate FiO2 01/23/17 04:23 98.1 57 18 103/55 (71) 97 01/23/17 00:15 98.8 78 18 117/69 (85) 98 01/22/17 21:08 65 110/74 (86) 99 Room Air 01/22/17 19:44 98 Room Air 01/22/17 19:42 55 20 96 Room Air 01/22/17 17:40 Room Air 01/22/17 16:50 98.0 58 16 123/65 (84) 96 Result Diagram: 01/22/17 8325 01/22/171744 Objective Remarks GENERAL: Well-developed well-nourished. In no acute distress. SKIN: Warm and dry. No lesions noted. HEENT: Normocephalic. Pupils equal and round. Mucous membranes pink and moist. CARDIOVASCULAR: Regular rate and rhythm. No murmur appreciated. RESPIRATORY: No accessory muscle use. Clear to auscultation. Breath sounds equal bilaterally. GASTROINTESTINAL: Abdomen soft, nondistended. Some mild RUQ TTP. Bowel sounds x4. MUSCULOSKELETAL: No obvious deformities. No clubbing or cyanosis. No edema. NEUROLOGICAL: Awake and alert. No focal neurological deficits. Moves upper and lower extremities spontaneously. Normal speech. PSYCHIATRIC: Appropriate mood and affect; insight and judgment normal. A/P Problem List: (1) Intractable abdominal pain ICD Code: R10.9 - Unspecified abdominal pain Status: Acute (2) Dilated cbd, acquired ICD Code: K83.8 - Other specified diseases of biliary tract Status: Acute (3) Renal insufficiency ICD Code: N28.9 - Disorder of kidney and ureter, unspecified Status: Acute (4) Anxiety ICD Code: F41.9 - Anxiety Status: Acute Assessment and Plan 56-year-old female with a PMH of Anxiety, HTN, Hyperlipidemia, GERD and CAD who presented to the ER with complaints of severe RUQ pain w/ associated nausea and vomiting Intractable Abd Pain: c/o constant RUQ pain x4 months, worse after eating. Abdominal CT with possible urinary retention's, otherwise no acute findings. No improvement on home [place], continue Percocet prn and IV morphine as needed for breakthrough. CBD Dilatation: Gallbladder US w/ mild common bile duct distention; no intrahepatic biliary ductal dilatation, no cholelithiasis, no inflammation noted. LFTs and lipase within normal limits. Afebrile with no leukocytosis. Previous workup at [facility], obtain records. No indication for emergent intervention. Check HIDA scan. GI consulted. Addendum 1100: Discussed with GI, recommended general surgery evaluate Acute kidney injury on chronic kidney disease: Creatinine 1.78, previously 1.21 on 05/31/16. IVF. Repeat labs pending. Anxiety: Chronic. Seems to be contributing to above symptoms. Continue home Valium. DVT Prophylaxis: SCD/Teds. Discharge Planning Obtain records. Follow-up specialist input. Monitor for clinical improvement. Darien Dorado Jan 23, 2017 08:33
[2017-01-23] MEDS: ASPIRIN EC 81 MG TABEC PO SCH (08:47)
[2017-01-23] MEDS: DIAZEPAM 10 MG TAB PO SCH ×2 (08:47→20:34)
[2017-01-23] MEDS: PANTOPRAZOLE SOD 40 MG DELAYED RELEASE TAB PO SCH (08:48)
[2017-01-23] MEDS: SODIUM CHLORIDE 0.9% FLUSH 10 ML FLUSH IV FLUSH SCH ×2 (08:48→20:34)
[2017-01-23] MEDS: MULTIVITAMIN TAB PO SCH (08:48)
[2017-01-23] MEDS: METOPROLOL SUCCINATE 25 MG EXTENDED RELEASE TAB PO SCH (08:48)
[2017-01-23] MEDS: DOCUSATE SODIUM 50 MG/SENNA 8.6 MG TAB PO SCH ×2 (08:48→20:34)
[2017-01-23 08:49] LABS: ANION GAP 10 MEQ/L (5-15); AST (GOT) 10 U/L (15-37); BICARBONATE 28.3 MEQ/L (21.0-32.0); BLOOD UREA NITROGEN 20 MG/DL (7-18); CHLORIDE 106 MEQ/L (98-107); GLOMERULAR FILTRATION RATE 52 ML/MIN (>89); SODIUM (NA) 144 MEQ/L (136-145)
[2017-01-23] MEDS: DICYCLOMINE HCL 20 MG TAB PO SCH ×4 (08:49→20:34)
[2017-01-23] MEDS: PREGABALIN 75 MG CAP PO SCH ×2 (08:49→20:34)
[2017-01-23 08:53] LABS: ALKALINE PHOSPHATASE 46 U/L (45-117); ALT (GPT) 19 U/L (10-53); TOTAL BILIRUBIN ADULT 0.3 MG/DL (0.2-1.0)
[2017-01-23] MEDS: DILTIAZEM-CD 180 MG CAP ER PO SCH (08:55)
[2017-01-23] MEDS: SUCRALFATE 1 GM TAB PO SCH ×3 (08:55→17:21)
[2017-01-23] MEDS: SODIUM CHLOR 0.9% 1000 ML INJ 1,000 ML IV SCH ×2 (08:55→18:54)
--- NOTE | 2017-01-23 11:44 | PD.CONS ---
HPI History of Present Illness This is a 56 year old female who presented to the emergency room for evaluation of severe right upper quadrant pain with associated nausea/vomiting. She states that she has been having these symptoms for the past 4 months. It is a pressure -like pain in right upper quadrant that radiates to her back with associated nausea and occasional vomiting. Her symptoms are aggravated by po intake. She states this is any food, regardless of the type of food. She also has associated bloated. She does have constipation, but states that she had 2 bowel movements this morning and not having any issues with this at this time. She states that she has not been able to eat because of the pain and has lost 36 lbs over the past 7-8 weeks. She also reports intermittent chills and fevers at night. She reports that she has been in and out of [facility] for these symptoms. She reports that she has had CT scans, HIDA scan, US , and EGD/Colonoscopy. She was seen by [facility] for GI. She reports that she was told that she had hemorrhoids, but that her scopes were otherwise unremarkable. She has been seen by Dr. Allen, but reports that she has not been able to get an appointment because they have been rescheduled. She called her insurance [employer] on Tuesday and reports that they told her to come here to have her gallbladder removed. GB US (01/22/17)----> Mildly distended common bile duct, no evidence of intrahepatic biliary duct dilatation, cholelithiasis or acute inflammatory changes, small bright echoes in the kidney suggesting nephrolithiasis, right extrarenal pelvis without significant hydronephrosis. CT scan abdomen and pelvis (01/22/17)----> Markedly distended urinary bladder characteristic of urinary retention. Post surgical changes in gastroesophageal junction. No other significant findings. CBC and LFT are unremarkable. A HIDA Scan has been ordered and is pending. General surgery has been consulted. (Analisa Hill) PFSH Past Medical History Anxiety HTN Hyperlipidemia GERD CAD Hemorrhoids Abdominal pain with n/v x 4 months Past Surgical History 9 Hernia Repairs- right groin, umbilical Appendectomy CABG Cardiac catheterization with stent placement Hysterectomy Stomach [place] Tonsillectomy EGD/Colonoscopy (Analisa Hill) Coded Allergies: codeine (Unverified Allergy, Severe, 11/23/16) fentanyl (Unverified Allergy, Severe, 11/23/16) throat closing hydroxyzine (Unverified Allergy, Severe, UNKNOWN, 11/23/16) ipratropium (Unverified Allergy, Severe, 11/23/16) ketorolac (Unverified Allergy, Severe, ITCHING ALL OVER, 11/23/16) meloxicam (Unverified Allergy, Severe, 11/23/16) methimazole (Unverified Allergy, Severe, EMESIS, 11/23/16) nitrofurantoin (Unverified Allergy, Severe, "DEALTHLY ILL", 11/23/16) olanzapine (Unverified Allergy, Severe, EMESIS, 11/23/16) paroxetine (Unverified Allergy, Severe, MUSCLE SPASMS, ITCHING, 11/23/16) SPASMS IN LEGS sertraline (Unverified Allergy, Severe, EMESIS, 11/23/16) tramadol (Unverified Allergy, Severe, ITCHING, 11/23/16) celecoxib (Unverified Allergy, Unknown, 11/23/16) peanut (Unverified Allergy, Unknown, tight throat, 11/23/16) rofecoxib (Unverified Allergy, Unknown, tachycardia,nausea, 11/23/16) Medications Allergies Coded Allergies Type Severity Reaction Last Updated Verified codeine Allergy Severe 11/23/16 No fentanyl Allergy Severe 11/23/16 No hydroxyzine Allergy Severe UNKNOWN 11/23/16 No ipratropium Allergy Severe 11/23/16 No ketorolac Allergy Severe ITCHING ALL OVER 11/23/16 No meloxicam Allergy Severe 11/23/16 No methimazole Allergy Severe EMESIS 11/23/16 No nitrofurantoin Allergy Severe "DEALTHLY ILL" 11/23/16 No olanzapine Allergy Severe EMESIS 11/23/16 No paroxetine Allergy Severe MUSCLE SPASMS, ITCHING 11/23/16 No sertraline Allergy Severe EMESIS 11/23/16 No tramadol Allergy Severe ITCHING 11/23/16 No celecoxib Allergy Unknown 11/23/16 No peanut Allergy Unknown tight throat 11/23/16 No rofecoxib Allergy Unknown tachycardia,nausea 11/23/16 No Active Scripts Medications Dose Route/Sig Max Daily Dose Days Date Category Dose Instructions Cardizem CD 24 HR (Diltiazem CD 24 HR) 180 Mg Caper 180 Mg PO DAILY 01/22/17 Reported Lyrica (Pregabalin) 75 Mg Cap 75 Mg PO BID 01/22/17 Reported Miralax Powder (Polyethylene Glycol 3350 Powder) 17 Gm Powd 17 Gm PO DAILY PRN 01/22/17 Reported Mix and dissolve one measuring cap-ful (17 grams) in water or juice. Phenergan (Promethazine HCl) 25 Mg Tablet 25 Mg PO TID 01/22/17 Reported Pantoprazole (Pantoprazole Sodium) 40 Mg Tab 40 Mg PO DAILY 01/22/17 Reported Carafate (Sucralfate) 1 Gram Tab 1 Gm PO QID 01/22/17 Reported On empty stomach One Daily (Multiple Vitamin) 1 Tab 1 Tab PO DAILY 01/22/17 Reported Proair Hfa 8.5 GM Inh (Albuterol Sulfate) 90 Mcg/Act Aer 2 Puff INH Q4-6H PRN 01/22/17 Reported 108 mcg/actuation Tizanidine (Tizanidine HCl) 2 Mg Cap 2 Mg PO TID 01/22/17 Reported Dicyclomine (Dicyclomine HCl) 20 Mg Tab 20 Mg PO QID 01/22/[address] (Aspirin) 81 Mg Tabdr 81 Mg PO DAILY 05/31/16 Reported Valium (Diazepam) 10 Mg Tab 10 Mg PO BID 05/31/16 Reported Furosemide 20 Mg Tab 20 Mg PO DAILY 05/31/16 Reported [place] (Hydrocodone-Acetaminophen) 10-325 Mg Tab 1 Tab PO TID PRN 05/31/16 Reported K-Tab (Potassium Chloride) 10 Meq Tab 10 Meq PO DAILY 05/31/16 Reported Restoril (Temazepam) 30 Mg Cap 30 Mg PO HS 05/31/16 Reported Toprol XL (Metoprolol Succinate) 25 Mg Tab 25 Mg PO DAILY 05/31/16 Reported Zofran Odt (Ondansetron Odt) 4 Mg Tab 4 Mg SL Q6HR PRN 05/31/16 Reported Family History Mother had cardiac disease Social History Denies tobacco, etoh, illicit drug use (Analisa Hill) Review of Systems Constitutional: COMPLAINS OF: Fever, Weight loss (50 ), Chills, Change in appetite Respiratory: DENIES: Cough Cardiovascular: DENIES: Chest pain Gastrointestinal: COMPLAINS OF: Abdominal pain, Constipation, Nausea, Swelling of Abdomen Integumentary: DENIES: Abnormal pigmentation Hematologic/lymphatic: DENIES: Bruising Neurologic: DENIES: Headache Psychiatric: DENIES: Confusion (Analisa Hill) GI Exam Vitals I&O Vital Signs Date Time Temp Pulse Resp B/P (MAP) Pulse Ox O2 Delivery O2 Flow Rate FiO2 01/23/17 08:21 96.0 58 20 113/58 (76) 96 01/23/17 04:23 98.1 57 18 103/55 (71) 97 01/23/17 00:15 98.8 78 18 117/69 (85) 98 01/22/17 21:08 65 110/74 (86) 99 Room Air 01/22/17 19:44 98 Room Air 01/22/17 19:42 55 20 96 Room Air 01/22/17 17:40 Room Air 01/22/17 16:50 98.0 58 16 123/65 (84) 96 I/O 01/22/17 01/22/17 01/22/17 01/23/17 01/23/17 01/23/17 07:00 15:00 23:00 07:00 15:00 23:00 Intake Total 200 ml Balance 200 ml Intake Oral 200 ml Imaging Last Impressions Abdomen/Pelvis CT 01/22/17 1831 Signed Impressions: Service Date/Time: Sunday, January 22, 2017 21:13 - CONCLUSION: 1. Markedly distended urinary bladder characteristic of urinary retention. 2. Post surgical changes gastroesophageal junction. 3. No other significant findings. Obey Canales MD Gall Bladder Ultrasound 01/22/17 9277 Signed Impressions: Service Date/Time: Sunday, January 22, 2017 17:47 - CONCLUSION: 1. Mildly distended common bile duct. 2. No evidence of intrahepatic biliary duct dilatation, cholelithiasis or acute inflammatory changes. 3. Small bright echoes in the kidney suggesting nephrolithiasis. 4. Right extrarenal pelvis without significant hydronephrosis. Obey Canales MD Laboratory Test 01/22/17 17:45 01/22/17 18:50 01/23/17 07:12 White Blood Count 4.8 TH/MM3 3.6 TH/MM3 Red Blood Count 4.38 MIL/MM3 4.13 MIL/MM3 Hemoglobin 13.3 GM/DL 12.5 GM/DL Hematocrit 39.2 % 36.9 % Mean Corpuscular Volume 89.5 FL 89.3 FL Mean Corpuscular Hemoglobin 30.4 PG 30.4 PG Mean Corpuscular Hemoglobin Concent 34.0 % 34.0 % Red Cell Distribution Width 13.6 % 13.5 % Platelet Count 219 TH/MM3 177 TH/MM3 Mean Platelet Volume 9.3 FL 9.8 FL Neutrophils (%) (Auto) 65.8 % 41.0 % Lymphocytes (%) (Auto) 25.3 % 46.9 % Monocytes (%) (Auto) 7.0 % 8.4 % Eosinophils (%) (Auto) 1.6 % 3.4 % Basophils (%) (Auto) 0.3 % 0.3 % Neutrophils # (Auto) 3.1 TH/MM3 1.5 TH/MM3 Lymphocytes # (Auto) 1.2 TH/MM3 1.7 TH/MM3 Monocytes # (Auto) 0.3 TH/MM3 0.3 TH/MM3 Eosinophils # (Auto) 0.1 TH/MM3 0.1 TH/MM3 Basophils # (Auto) 0.0 TH/MM3 0.0 TH/MM3 CBC Comment DIFF FINAL DIFF FINAL Differential Comment Blood Urea Nitrogen 24 MG/DL 20 MG/DL Creatinine 1.78 MG/DL 1.09 MG/DL Random Glucose 94 MG/DL 87 MG/DL Total Protein 6.5 GM/DL 5.5 GM/DL Albumin 3.6 GM/DL 3.2 GM/DL Calcium Level 8.5 MG/DL 8.4 MG/DL Alkaline Phosphatase 58 U/L 46 U/L Aspartate Amino Transf (AST/SGOT) 15 U/L 10 U/L Alanine Aminotransferase (ALT/SGPT) 28 U/L 19 U/L Total Bilirubin 0.2 MG/DL 0.3 MG/DL Sodium Level 142 MEQ/L 144 MEQ/L Potassium Level 4.4 MEQ/L 4.0 MEQ/L Chloride Level 107 MEQ/L 106 MEQ/L Carbon Dioxide Level 28.0 MEQ/L 28.3 MEQ/L Anion Gap 7 MEQ/L 10 MEQ/L Estimat Glomerular Filtration Rate 29 ML/MIN 52 ML/MIN Lipase 157 U/L Urine Color LIGHT-YELLOW Urine Turbidity CLEAR Urine pH 6.5 Urine Specific [place] 1.009 Urine Protein NEG mg/dL Urine Glucose (UA) NEG mg/dL Urine Ketones NEG mg/dL Urine Occult Blood NEG Urine Nitrite NEG Urine Bilirubin NEG Urine Urobilinogen LESS THAN 2.0 MG/DL Urine Leukocyte Esterase NEG Urine RBC 1 /hpf Urine Squamous Epithelial Cells <1 /hpf Microscopic Urinalysis Comment CULT NOT INDICATED Physical Examination HEENT: Normocephalic; atraumatic; no jaundice. CHEST: CTA CARDIAC: RRR ABDOMEN: Soft, nondistended, RUQ tenderness; no hepatosplenomegaly; bowel sounds are present in all four quadrants. EXTREMITIES: No clubbing, cyanosis, or edema. SKIN: Normal; no rash; no jaundice. FORM DRAFTER: No focal deficits; alert and oriented times three. (Analisa Hill) Assessment and Plan Plan ASSESSMENT: - RUQ pain with associated n/v. Pt reports 4 month hx of RUQ pain associated with food intake- associated n/v, weight loss, inability to eat secondary to pain. She has been evaluated at [facility] with Dr. Moran and Dr. Allen (CT/US/HIDA/EGD/Colonoscopy) and she reports she was told that she needed a lap. cholecystectomy as outpt. She states she has not been able to follow up with [facility] as outpt and states her insurance [employer] instructed her to go to the hospital to have her GB removed. GB US (01/22/17)----> Mildly distended common bile duct, no evidence of intrahepatic biliary duct dilatation, cholelithiasis or acute inflammatory changes, small bright echoes in the kidney suggesting nephrolithiasis, right extrarenal pelvis without significant hydronephrosis. CT scan abdomen and pelvis (01/22/17)----> Markedly distended urinary bladder characteristic of urinary retention. Post surgical changes in gastroesophageal junction. No other significant findings. CBC and LFT are unremarkable. HIDA pending. General surgery has been consulted. Pt has significant RUQ tenderness on exam, of note, her breakfast tray is in the room and she ate most of her biscuit and mchugh. - GERD. PPI - HTN, Anxiety, Hyperlipidemia, CAD per attending PLAN: - Low fat diet - PPI - Zofran prn - Await HIDA scan - Obtain records from [facility] - GS has been consulted - Pt seen and examined by Dr. Montanez and myself and this note is written on his behalf (Analisa Hill) Physician Comments Seen and examind with [facility], extensive recent graves by Dr Moran for these symptoms. [facility] consulted for possible cholecystectomy. (Rajani Montanez MD) Analisa Hill Jan 23, 2017 11:44 Rajani Montanez MD Jan 23, 2017 14:41
[2017-01-23 12:05] VITALS: BP 120/60; PULSE 68; TEMP 97.8; O2SAT 96
[2017-01-23] MEDS ORDERED: POLYETHYLENE GLYCOL 17 GM PKG PO ONE (12:30)
[2017-01-23] MEDS ORDERED: MAGNESIUM HYDROXIDE SUSP 30 ML CUP PO ONE (12:30)
[2017-01-23] MEDS: oxyCODONE/ACETAMINOPHEN 5 MG/325 MG TAB PO PRN ×2 (14:34→23:31)
[2017-01-23] MEDS: MORPHINE SULFATE 4 MG/ML INJ IV PUSH PRN (17:22)
[2017-01-23 20:00] VITALS: BP 87/52; PULSE 54; RESP 18; TEMP 95.6; O2SAT 96
[2017-01-23] MEDS: TEMAZEPAM 15 MG CAP PO SCH (20:34)
[2017-01-23] MEDS ORDERED: SUCRALFATE 1 GM TAB PO SCH (21:00)
[2017-01-23 22:46] VITALS: BP 107/50; PULSE 54; RESP 18; TEMP 95.8; O2SAT 96
--- NOTE | 2017-01-24 02:18 | RADRPT ---
EXAM DATE/TIME: 01/23/2017 12:46 [place] COMPARISON: No previous studies available for comparison. INDICATIONS : Abdominal pain for 4 days. DOSE: 4.1 mCi Tc99m Mebrofenin IV MEDICAL HISTORY : Myocardial infarction. Hypertension. SURGICAL HISTORY : Inguinal hernia repair. Hysterectomy. CABG ENCOUNTER: Initial ACUITY: 4 - 6 days PAIN SCALE: 5/10 LOCATION: Right upper quadrant TECHNIQUE: Following the intravenous administration of radiotracer, dynamic sequential images were performed wit h continuous acquisition. FINDINGS: HEPATIC KINETICS: There is prompt uptake of radiotracer in the liver. No focal defects are seen. There is normal rate of washout from the hepatic parenchyma. BILIARY CLEARANCE: Activity is first seen in the extrahepatic biliary system at 25minutes. There is normal excretion in to the small bowel. GALLBLADDER: Activity is first seen in the gallbladder at 30 minutes. Common bile duct kinetics are normal and th ere is no evidence of biliary obstruction. BILIARY ENTRIC REFLUX: None observed. CONCLUSION: 1. Negative biliary scan Fernando Villalba MD on January 24, 2017 at 2:15 Board Certified Radiologist. This report was verified electronically.
[2017-01-24] MEDS: ONDANSETRON HCL 4 MG/2 ML VIAL IVP PRN ×2 (03:00→10:46)
[2017-01-24] MEDS: MORPHINE SULFATE 4 MG/ML INJ IV PUSH PRN ×2 (03:01→13:29)
[2017-01-24 03:24] VITALS: BP 127/79; PULSE 51; RESP 18; TEMP 96.9; O2SAT 98
[2017-01-24] MEDS: SODIUM CHLOR 0.9% 1000 ML INJ 1,000 ML IV SCH ×2 (04:54→08:09)
[2017-01-24 07:26] VITALS: BP 103/60; PULSE 51; RESP 21; TEMP 95.8; O2SAT 96
[2017-01-24] MEDS: ASPIRIN EC 81 MG TABEC PO SCH (08:11)
[2017-01-24] MEDS: PREGABALIN 75 MG CAP PO SCH (08:11)
[2017-01-24] MEDS: PANTOPRAZOLE SOD 40 MG DELAYED RELEASE TAB PO SCH (08:11)
[2017-01-24] MEDS: SUCRALFATE 1 GM TAB PO SCH ×2 (08:11→12:46)
[2017-01-24] MEDS: DICYCLOMINE HCL 20 MG TAB PO SCH ×2 (08:12→12:46)
[2017-01-24] MEDS: DOCUSATE SODIUM 50 MG/SENNA 8.6 MG TAB PO SCH (08:12)
[2017-01-24] MEDS: DIAZEPAM 10 MG TAB PO SCH (08:12)
[2017-01-24] MEDS: MULTIVITAMIN TAB PO SCH (08:12)
[2017-01-24] MEDS: METOPROLOL SUCCINATE 25 MG EXTENDED RELEASE TAB PO SCH (08:13)
[2017-01-24] MEDS: SODIUM CHLORIDE 0.9% FLUSH 10 ML FLUSH IV FLUSH SCH (08:14)
[2017-01-24] MEDS: DILTIAZEM-CD 180 MG CAP ER PO SCH (08:18)
[2017-01-24 10:18] VITALS: BP_SYST 91; BP_SYST 94; BP_DIAS 54; BP_DIAS 56
[2017-01-24 10:28] VITALS: BP 100/65; PULSE 62
[2017-01-24] MEDS: oxyCODONE/ACETAMINOPHEN 5 MG/325 MG TAB PO PRN (10:45)
--- NOTE | 2017-01-24 12:12 | HHI.PR ---
Subjective Remarks Follow-up for right-sided abdominal pain. The patient states she feels the same today. In her right upper quadrant. She reports she feels like her abdomen is swollen. She's been tolerating oral intake. Awaiting general surgery evaluation. Objective Vitals Vital Signs Date Time Temp Pulse Resp B/P (MAP) Pulse Ox O2 Delivery O2 Flow Rate FiO2 01/24/17 10:28 62 100/65 (77) 01/24/17 10:18 91/54 (66) 94/56 (69) 01/24/17 07:26 95.8 51 21 103/60 (74) 96 01/24/17 03:24 96.9 51 18 127/79 (95) 98 01/23/17 22:46 95.8 54 18 107/50 (69) 96 01/23/17 20:00 95.6 54 18 87/52 (64) 96 01/23/17 17:59 17 01/23/17 15:49 18 I/O 01/23/17 01/23/17 01/23/17 01/24/17 01/24/17 01/24/17 07:00 15:00 23:00 07:00 15:00 23:00 Intake Total 200 ml Balance 200 ml Intake Oral 200 ml # Voids 1 Result Diagram: 01/23/17 0712 01/23/17 0712 Imaging Last Impressions Hepatobiliary Scan Nuclear Medicine 01/23/17 0000 Signed Impressions: Service Date/Time: Monday, January 23, 2017 12:46 - CONCLUSION: 1. Negative biliary scan Fernando Villalba MD Abdomen/Pelvis CT 01/22/17 1831 Signed Impressions: Service Date/Time: Sunday, January 22, 2017 21:13 - CONCLUSION: 1. Markedly distended urinary bladder characteristic of urinary retention. 2. Post surgical changes gastroesophageal junction. 3. No other significant findings. Obey Canales MD Gall Bladder Ultrasound 01/22/17 3244 Signed Impressions: Service Date/Time: Sunday, January 22, 2017 17:47 - CONCLUSION: 1. Mildly distended common bile duct. 2. No evidence of intrahepatic biliary duct dilatation, cholelithiasis or acute inflammatory changes. 3. Small bright echoes in the kidney suggesting nephrolithiasis. 4. Right extrarenal pelvis without significant hydronephrosis. Obey Canales MD Objective Remarks GENERAL: Well-developed well-nourished. In no acute distress. SKIN: Warm and dry. No lesions noted. HEENT: Normocephalic. Pupils equal and round. Mucous membranes pink and moist. CARDIOVASCULAR: Regular rate and rhythm. No murmur appreciated. RESPIRATORY: No accessory muscle use. Clear to auscultation. Breath sounds equal bilaterally. GASTROINTESTINAL: Abdomen soft, nondistended. Some mild RUQ TTP. Bowel sounds x4. MUSCULOSKELETAL: No obvious deformities. No clubbing or cyanosis. No edema. NEUROLOGICAL: Awake and alert. No focal neurological deficits. Moves upper and lower extremities spontaneously. Normal speech. PSYCHIATRIC: Extremely anxious mood and affect; insight and judgment normal. A/P Problem List: (1) Intractable abdominal pain ICD Code: R10.9 - Unspecified abdominal pain Status: Acute (2) Dilated cbd, acquired ICD Code: K83.8 - Other specified diseases of biliary tract Status: Acute (3) Renal insufficiency ICD Code: N28.9 - Disorder of kidney and ureter, unspecified Status: Acute (4) Anxiety ICD Code: F41.9 - Anxiety Status: Acute Assessment and Plan 56-year-old female with a PMH of Anxiety, HTN, Hyperlipidemia, GERD and CAD who presented to the ER with complaints of severe RUQ pain w/ associated nausea and vomiting Intractable Abd Pain: c/o constant RUQ pain x4 months, worse after eating. Abdominal CT with possible urinary retention's, otherwise no acute findings. No improvement on home [place], continue Percocet prn and IV morphine as needed for breakthrough. D/W GI BRASS ROLLER, further management per surgery, GI will sign off. CBD Dilatation: Gallbladder US w/ mild common bile duct distention; no intrahepatic biliary ductal dilatation, no cholelithiasis, no inflammation noted. LFTs and lipase within normal limits. Afebrile with no leukocytosis. Previous workup at [facility], obtain records. No indication for emergent intervention. Checked HIDA scan which was negative. GI consulted, D/W Dr. Montanez, recommended general surgery evaluation. General surgery consulted, appreciate input. Explained to patient that this may need to be followed up as outpatient but she remains hopeful/insistent that we will take her gallbladder out while she is here. Acute kidney injury on chronic kidney disease: Creatinine 1.78, previously 1.21 on 05/31/16. Given IVF and creatinine improved to 1.09. Discontinue home Lasix. Anxiety: Chronic. Seems to be contributing to above symptoms. Continue home Valium. DVT Prophylaxis: SCD/Teds. Discharge Planning Follow-up general surgery recommendations. Discharge planning if cleared by general surgery. Patient cleared by general surgery for discharge, can follow up with her general surgeon as outpatient. Darien Dorado Jan 24, 2017 12:12
--- NOTE | 2017-01-24 13:15 | PD.CONS ---
HPI Service General Surgery Consult Requested By Reason for Consult possible biliary disease Primary Care Physician Santhosh Yuan DO History of Present Illness 56 yo F with 4 month h/o abdominal pain, RUQ, associated with nausea and occasional vomiting. She says she has lost weight and been unable to eat well. She has been seen at [facility]. She apparently has followed up with Dr. Cantu as outpatient and it seems from her paperwork that cholecystectomy was recommended but authorization was not received. She had EGD/Colonoscopy at and she does not report any major findings. PSH includes a fundoplication in the past. She has had dysphagia before but had EGD with dilation last year and it resolved. She has had normal WBC and normal LFTs. U/s showed mildly distended CBD. CT and HIDA showed no biliary disease. Review of Systems Constitutional: COMPLAINS OF: Change in appetite, DENIES: Fever, Chills Eyes: DENIES: Eye inflammation, Eye pain Ears, nose, mouth, throat: DENIES: Nasal discharge, Oral lesions Respiratory: DENIES: Cough, Shortness of breath Cardiovascular: DENIES: Chest pain, Palpitations Gastrointestinal: COMPLAINS OF: Abdominal pain, Nausea Integumentary: DENIES: Pruritus, Rash Neurologic: DENIES: Paresthesias, Seizures Past Family Social History Past Medical History CAD Hyperlipidemia GERD Hypertension Past Surgical History CABG Hysterectomy was Appendectomy Stomach surgery I think was a fundoplication Reported Medications Reported Meds & Active Scripts Active Reported Cardizem CD 24 HR (Diltiazem CD 24 HR) 180 Mg Caper 180 Mg PO DAILY Lyrica (Pregabalin) 75 Mg Cap 75 Mg PO BID Miralax Powder (Polyethylene Glycol 3350 Powder) 17 Gm Powd 17 Gm PO DAILY PRN Mix and dissolve one measuring cap-ful (17 grams) in water or juice. Phenergan (Promethazine HCl) 25 Mg Tablet 25 Mg PO TID Pantoprazole (Pantoprazole Sodium) 40 Mg Tab 40 Mg PO DAILY Carafate (Sucralfate) 1 Gram Tab 1 Gm PO QID On empty stomach One Daily (Multiple Vitamin) 1 Tab 1 Tab PO DAILY Proair Hfa 8.5 GM Inh (Albuterol Sulfate) 90 Mcg/Act Aer 2 Puff INH Q4-6H PRN 108 mcg/actuation Tizanidine (Tizanidine HCl) 2 Mg Cap 2 Mg PO TID Dicyclomine (Dicyclomine HCl) 20 Mg Tab 20 Mg PO QID Aspirin DR (Aspirin) 81 Mg Tabdr 81 Mg PO DAILY Valium (Diazepam) 10 Mg Tab 10 Mg PO BID Furosemide 20 Mg Tab 20 Mg PO DAILY [place] (Hydrocodone-Acetaminophen) 10-325 Mg Tab 1 Tab PO TID PRN K-Tab (Potassium Chloride) 10 Meq Tab 10 Meq PO DAILY Restoril (Temazepam) 30 Mg Cap 30 Mg PO HS Toprol XL (Metoprolol Succinate) 25 Mg Tab 25 Mg PO DAILY Zofran Odt (Ondansetron Odt) 4 Mg Tab 4 Mg SL Q6HR PRN Allergies: Coded Allergies: codeine (Unverified Allergy, Severe, 11/23/16) fentanyl (Unverified Allergy, Severe, 11/23/16) throat closing hydroxyzine (Unverified Allergy, Severe, UNKNOWN, 11/23/16) ipratropium (Unverified Allergy, Severe, 11/23/16) ketorolac (Unverified Allergy, Severe, ITCHING ALL OVER, 11/23/16) meloxicam (Unverified Allergy, Severe, 11/23/16) methimazole (Unverified Allergy, Severe, EMESIS, 11/23/16) nitrofurantoin (Unverified Allergy, Severe, "DEALTHLY ILL", 11/23/16) olanzapine (Unverified Allergy, Severe, EMESIS, 11/23/16) paroxetine (Unverified Allergy, Severe, MUSCLE SPASMS, ITCHING, 11/23/16) SPASMS IN LEGS sertraline (Unverified Allergy, Severe, EMESIS, 11/23/16) tramadol (Unverified Allergy, Severe, ITCHING, 11/23/16) celecoxib (Unverified Allergy, Unknown, 11/23/16) peanut (Unverified Allergy, Unknown, tight throat, 11/23/16) rofecoxib (Unverified Allergy, Unknown, tachycardia,nausea, 11/23/16) Active Ordered Medications Current Medications Medications (Trade) Dose Ordered Sig/Jyoti Route Start Time Stop Time Status Last Admin Sodium Chloride 1,000 ml @ 100 mls/hr Q10H IV 01/22/17 22:54 01/24/17 08:09 (NS Flush) 2 ml UNSCH PRN IV FLUSH 01/22/17 23:00 (NS Flush) 2 ml BID IV FLUSH 01/23/17 09:00 01/24/17 08:14 (Zofran Inj) 4 mg Q6H PRN IVP 01/22/17 23:00 01/24/17 10:46 (Tylenol) 650 mg Q6H PRN PO 01/22/17 23:00 (Morphine Inj) 2 mg Q3H PRN IV PUSH 01/22/17 23:00 01/24/17 03:01 (Queta-Colace) 1 tab BID PO 01/23/17 09:00 01/24/17 08:12 (Milk Of Magnesia Liq) 30 ml Q12H PRN PO 01/22/17 23:00 (Senokot) 17.2 mg Q12H PRN PO 01/22/17 23:00 (Dulcolax Supp) 10 mg DAILY PRN RECTAL 01/22/17 23:00 (Lactulose Liq) 30 ml DAILY PRN PO 01/22/17 23:00 (Proair Hfa Inh) 2 puff Q4H PRN INH 01/22/17 23:45 (Ecotrin Ec) 81 mg DAILY PO 01/23/17 09:00 01/24/17 08:11 (Valium) 10 mg BID PO 01/23/17 09:00 01/24/17 08:12 (Bentyl) 20 mg QID PO 01/23/17 09:00 01/24/17 12:46 (Cardizem Cd) 180 mg DAILY PO 01/23/17 09:00 01/24/17 08:18 (Toprol Xl) 25 mg DAILY PO 01/23/17 09:00 01/23/17 08:48 (Theragran) 1 tab DAILY PO 01/23/17 09:00 01/24/17 08:12 (Protonix) 40 mg DAILY PO 01/23/17 09:00 01/24/17 08:11 (Lyrica) 75 mg BID PO 01/23/17 09:00 01/24/17 08:11 (Carafate) 1 gm TIDAC PO 01/23/17 08:00 01/24/17 12:46 (Zanaflex) 2 mg TID PO 01/23/17 09:00 01/24/17 12:46 (Restoril) 30 mg HS PO 01/22/17 23:45 01/23/17 20:34 (Carafate) 1 gm HS PO 01/23/17 21:00 01/23/17 20:34 (Percocet 5-325 Mg) 1 tab Q4H PRN PO 01/23/17 08:30 01/24/17 10:45 Family History Noncontributory Social History No alcohol tobacco or drug use Physical Exam Vital Signs Vital Signs Date Time Temp Pulse Resp B/P (MAP) Pulse Ox O2 Delivery O2 Flow Rate FiO2 01/24/17 10:28 62 100/65 (77) 01/24/17 10:18 91/54 (66) 94/56 (69) 01/24/17 07:26 95.8 51 21 103/60 (74) 96 01/24/17 03:24 96.9 51 18 127/79 (95) 98 01/23/17 22:46 95.8 54 18 107/50 (69) 96 01/23/17 20:00 95.6 54 18 87/52 (64) 96 01/23/17 17:59 17 01/23/17 15:49 18 Physical Exam GENERAL: Awake and alert. Anxious. Becomes tearful HEAD: Normocephalic. Atraumatic. EYES: Pupils equal round and reactive to light bilaterally. No scleral icterus. CHEST: Nonlabored breathing. No respiratory distress. CARDIOVASCULAR: Warm and well perfused ABDOMEN: Multiple well-healed incisions. Moderate right upper quadrant tenderness to palpation. Soft. EXTREMITIES: No cyanosis or edema. SKIN: Warm, dry, nonjaundiced. Laboratory Laboratory Tests Test 01/23/17 17:45 Urine Opiates Screen POS Urine Barbiturates Screen NEG Urine Amphetamines Screen NEG Urine Benzodiazepines Screen POS Urine Cocaine Screen NEG Urine Cannabinoids Screen NEG Result Diagram: 01/23/17 0712 01/23/17 0712 Imaging Last Impressions Hepatobiliary Scan Nuclear Medicine 01/23/17 0000 Signed Impressions: Service Date/Time: Monday, January 23, 2017 12:46 - CONCLUSION: 1. Negative biliary scan Fernando Villalba MD Abdomen/Pelvis CT 01/22/17 1831 Signed Impressions: Service Date/Time: Sunday, January 22, 2017 21:13 - CONCLUSION: 1. Markedly distended urinary bladder characteristic of urinary retention. 2. Post surgical changes gastroesophageal junction. 3. No other significant findings. Obey Canales MD Gall Bladder Ultrasound 01/22/17 1724 Signed Impressions: Service Date/Time: Sunday, January 22, 2017 17:47 - CONCLUSION: 1. Mildly distended common bile duct. 2. No evidence of intrahepatic biliary duct dilatation, cholelithiasis or acute inflammatory changes. 3. Small bright echoes in the kidney suggesting nephrolithiasis. 4. Right extrarenal pelvis without significant hydronephrosis. Obey Canales MD Assessment and Plan Assessment and Plan 56-year-old female with 4 months of right upper quadrant abdominal pain. She has no current laboratory or imaging findings to support biliary disease. I do not recommend a cholecystectomy at this time. She has been following with a surgeon as an outpatient and I would recommend she continue to follow up with surgery and gastroenterology for further evaluation. Jesus Paige MD Jan 24, 2017 13:15
[2017-01-24 14:00] VITALS: BP 96/61; PULSE 46; RESP 16; TEMP 97.7; O2SAT 95
--- NOTE | 2017-01-24 14:00 | HHI.GIFU ---
Subjective Remarks Resting in bed. (Analisa Hill) Objective Vitals I&O Vital Signs Date Time Temp Pulse Resp B/P (MAP) Pulse Ox O2 Delivery O2 Flow Rate FiO2 01/24/17 10:28 62 100/65 (77) 01/24/17 10:18 91/54 (66) 94/56 (69) 01/24/17 07:26 95.8 51 21 103/60 (74) 96 01/24/17 03:24 96.9 51 18 127/79 (95) 98 01/23/17 22:46 95.8 54 18 107/50 (69) 96 01/23/17 20:00 95.6 54 18 87/52 (64) 96 01/23/17 17:59 17 01/23/17 15:49 18 I/O 01/23/17 01/23/17 01/23/17 01/24/17 01/24/17 01/24/17 07:00 15:00 23:00 07:00 15:00 23:00 Intake Total 200 ml Balance 200 ml Intake Oral 200 ml # Voids 1 Laboratory Laboratory Tests Test 01/23/17 17:45 Urine Opiates Screen POS Urine Barbiturates Screen NEG Urine Amphetamines Screen NEG Urine Benzodiazepines Screen POS Urine Cocaine Screen NEG Urine Cannabinoids Screen NEG Imaging Last Impressions Hepatobiliary Scan Nuclear Medicine 01/23/17 0000 Signed Impressions: Service Date/Time: Monday, January 23, 2017 12:46 - CONCLUSION: 1. Negative biliary scan Fernando Villalba MD Abdomen/Pelvis CT 01/22/17 1831 Signed Impressions: Service Date/Time: Sunday, January 22, 2017 21:13 - CONCLUSION: 1. Markedly distended urinary bladder characteristic of urinary retention. 2. Post surgical changes gastroesophageal junction. 3. No other significant findings. Obey Canales MD Gall Bladder Ultrasound 01/22/17 1724 Signed Impressions: Service Date/Time: Sunday, January 22, 2017 17:47 - CONCLUSION: 1. Mildly distended common bile duct. 2. No evidence of intrahepatic biliary duct dilatation, cholelithiasis or acute inflammatory changes. 3. Small bright echoes in the kidney suggesting nephrolithiasis. 4. Right extrarenal pelvis without significant hydronephrosis. Obey Canales MD Physical Exam HEENT: Normocephalic; atraumatic; no jaundice. CHEST: CTA CARDIAC: Regular rate and rhythm with no murmur gallop or rubs. ABDOMEN: Soft, nondistended, RUQ/Epigastric tenderness; no hepatosplenomegaly; bowel sounds are present in all four quadrants. EXTREMITIES: No clubbing, cyanosis, or edema. SKIN: Normal; no rash; no jaundice. DIGITAL DATA ANALYST: No focal deficits; alert and oriented times three. (Analisa Hill) Assessment and Plan Plan ASSESSMENT: - RUQ pain with associated n/v. Pt reports 4 month hx of RUQ pain associated with food intake- associated n/v, weight loss, inability to eat secondary to pain. She has been evaluated at [facility] with Dr. Moran and Dr. Allen (CT/US/HIDA/EGD/Colonoscopy) and she reports she was told that she needed a lap. cholecystectomy as outpt. She states she has not been able to follow up with [facility] as outpt and states her insurance [employer] instructed her to go to the hospital to have her GB removed. GB US (01/22/17)----> Mildly distended common bile duct, no evidence of intrahepatic biliary duct dilatation, cholelithiasis or acute inflammatory changes, small bright echoes in the kidney suggesting nephrolithiasis, right extrarenal pelvis without significant hydronephrosis. CT scan abdomen and pelvis (01/22/17)----> Markedly distended urinary bladder characteristic of urinary retention. Post surgical changes in gastroesophageal junction. No other significant findings. CBC and LFT are unremarkable. HIDA negative. S/P [facility] evaluation, no signs of acute cholecystitis. Recommend outpatient fu with Dr. Allen Tolerating diet. - GERD. PPI - HTN, Anxiety, Hyperlipidemia, CAD per attending PLAN: - Low fat diet - PPI - Zofran prn - Okay to d/c home from GI standpoint - FU Dr. Allen/Dr. Moran as outpatient - Pt seen and examined by Dr. Mancilla and myself and this note is written on his behalf (Analisa Hill) Physician Comments Patient seen and examined Agree with above Continue with current supportive care Monitor labs Follow-up with GI post discharge (Philip Mancilla MD) Analisa Hill Jan 24, 2017 14:00 Philip Mancilla MD Jan 24, 2017 20:45
== END 2017-01-24 17:19 | disposition home or self-care (01) ==
LOC: NEPC 16:49 → INTOOBSV 22:44 → NEDA 22:44 → NEPHCDU 01-23 00:02
PROVIDERS: ADMIT Internal Medicine; ATTEND Internal Medicine
DX: R10.11 Right upper quadrant pain (principal); R11.2 Nausea with vomiting, unspecified; K82.8 Other specified diseases of gallbladder; N28.9 Disorder of kidney and ureter, unspecified; F41.9 Anxiety disorder, unspecified; I25.10 Atherosclerotic heart disease of native coronary artery without angina pectoris; E78.5 Hyperlipidemia, unspecified; Z95.1 Presence of aortocoronary bypass graft; K21.9 Gastro-esophageal reflux disease without esophagitis; Z95.5 Presence of coronary angioplasty implant and graft; N18.4 Chronic kidney disease, stage 4 (severe); I13.0 Hypertensive heart and chronic kidney disease with heart failure and stage 1 through stage 4 chronic kidney disease, or unspecified chronic kidney disease; N17.9 Acute kidney failure, unspecified; I25.2 Old myocardial infarction; I42.9 Cardiomyopathy, unspecified; I50.9 Heart failure, unspecified; Z87.891 Personal history of nicotine dependence; K59.00 Constipation, unspecified; G47.30 Sleep apnea, unspecified; Z87.442 Personal history of urinary calculi; Z79.899 Other long term (current) drug therapy
CPT/HCPCS: 74176; 76705; 78226; 80053; 80307; 81001; 83690; 84703; 85025; 96361; 96374; 96375; 96376; 99285; A9537; G0378; J2270; J2405; J7030; Q9963